=== PATIENT | female | born 1980 | race Caucasian/White ===

== ENCOUNTER → 2016-10-08 | Outpatient (CLI) | payer BC ==
[~2016-10-08] MED LIST: CIPR-225 PO; CLON0.2T12 PO; DCS100C PO; GABA800T PO; HYDR-34 PO; IBP600T1 PO; IBP800T PO; IBUP800T26 PO; ONDA4TAB8 SL; OXYC-12 PO; OXYC-197 PO; PHEN-640 PO; Simethicone PO; TAMS0.4C98 PO; TRAM50TA2 PO; ZLP5T PO
--- OUTSIDE RECORDS SUMMARY | 2016-10-08 11:50 | XMS REPORT ---
Author Author STORM RUBI [facility] Address Unknown Care Team Providers Care Gill Net Stringer Name Role Phone STORM RUBI Unavailable PROBLEMS Type Condition ICD9-CM Code MCQ81-PO Code Onset Dates Condition Status SNOMED Code Problem Insomnia, unspecified 780.52 Active 679010596 Problem Unspecified essential hypertension 401.9 Active 76718761 Problem Depressive disorder, not elsewhere classified 311 Active 09037975 Assessment Dental examination Z01.20 Mar, Active 378072464 ALLERGIES Substance Reaction Event Type Date Status Sulfa (sulfonamide Antibiotics) Unknown Non Drug Allergy Mar, Active Tylenol-codeine #3 Unknown Non Drug Allergy Mar, Active SOCIAL HISTORY No smoking Hx information available PLAN OF CARE VITAL SIGNS Blood pressure systolic 157 mmHg 2016-04-10 Blood pressure diastolic 117-wrist, 170 mmHg 2016-04-10 MEDICATIONS Medication Instructions Dosage Frequency Start Date End Date Duration Status [place] 5-325 MG Orally every 6 hrs 1 tablet as needed 6h Mar, Mar, 4 days Active Amoxicillin 500 MG Orally 4 times a day 1 capsule 6h Mar, Mar, 7 days Active Ambien 10 mg take 1 tablet (10 mg) by oral route once daily at bedtime November, Active clonidine 0.1 mg take 1 tablet by Oral route 1 time per day qHS November Active Ibuprofen Active Enalapril Maleate Active Neurontin Active RESULTS No Results PROCEDURES Procedure Date Ordered Related Diagnosis Body Site LTD ORAL EVALUATION - PROBLEM FOCUS Apr 10, 2016 INTRAORL-PERIAPICAL 1 FILM [id number] Apr 10, 2016 IMMUNIZATIONS No Known Immunizations
--- NOTE | 2016-10-08 16:27 | Diagnostic Imaging Report ---
PROCEDURE: CT urinary tract, rule out kidney stone. TECHNIQUE: Multiple contiguous axial images were obtained through the abdomen and pelvis without the use of intravenous contrast. INDICATION: Right flank pain. History of kidney stones. FINDINGS: There is mild scarring and atelectasis seen in the left lung base posteriorly. The liver, the spleen, the pancreas, and the adrenal glands appear unremarkable. Cholecystectomy clips are seen. There is a 1.5 cm fluid-attenuation lesion in the upper pole of the right kidney, similar to 12/22/2015 exam compatible with a cyst. There is resolution of the previously seen hydronephrosis on the previous study. There are multiple calcifications in the pelvis, mostly on the right side, compatible with phleboliths. There are no obstructive urinary tract stones. There is a tiny 2 mm nonobstructive stone in the mid left kidney. The abdominal aorta is normal in caliber. No para-aortic significantly enlarged lymph nodes or mass. The appendix appears normal. There is no bowel obstruction. There is no free fluid or fluid collection in the abdomen or pelvis seen. There is a tiny fat-containing umbilical hernia. There are bilateral minimally prominent adnexal lesions seen. There is suggestion of prior hysterectomy. The osseous structures demonstrate no definite abnormality. IMPRESSION: A 2 mm nonobstructive left kidney stone seen. There is no hydronephrosis in either kidney. No other urinary tract stones. Dictated by: Dictated on workstation # [id number]
== END ==
LOC: RAD 11:47
PROVIDERS: ATTEND Family Medicine
DX: N20.0 Calculus of kidney (principal); Z87.442 Personal history of urinary calculi
CPT/HCPCS: 74176

== ENCOUNTER 2017-07-21 22:16 | Emergency (ER) | payer BC ==
[~2017-07-21] VITALS: Ht 165.1 cm; Wt 86.2 kg
[2017-07-21] MEDS ORDERED: ENAL20TA (22:32)
[2017-07-21] MEDS ORDERED: KETOROLAC 30 MG/ML VIAL IVP STA (22:41)
[2017-07-21] MEDS ORDERED: NS IV 1000 ML 1,000 ML IV STA (22:41)
[2017-07-21] MEDS ORDERED: fentaNYL INJECTION 100 MCG/2 ML AMP IVP STA (22:41)
[2017-07-21] MEDS ORDERED: ONDANSETRON 4 MG/2 ML (SDV) Z0FRAN IVP ONE (22:45)
--- NOTE | 2017-07-21 22:48 | ED GU-Female ---
General Chief Complaint: Back Problems Stated Complaint: BACK AND ABD PAIN Nursing Triage Note: lower back pain x3 days, right flank pain x3hrs Nursing Sepsis Screen: No Definite Risk Source: patient Exam Limitations: no limitations History of Present Illness Time seen by provider: 22:35 Initial Comments Here with report of lower abdominal pain and then right flank pain that started 2-3 days ago and has worsened to now include the right flank. Has history of kidney stones and urinary tract infection as well as pyelonephritis. Last kidney stone was 1.2 cm and was plastic via ultrasound last year. She is also on the right. States that it feels very similar to that and that is what has her concerned the most. Reports pain is 6 out of 10 and is associated with nausea but no vomiting. Denies dysuria or diarrhea. She has had hysterectomy. Still has her appendix. Timing/Duration: getting worse Severity/Quality: moderate, aching Location: suprapubic Radiation: right flank Activities at Onset: none Associated Symptoms: abdominal pain, No dysuria, No fever/chills, lower back pain, nausea/vomiting, No urinary frequency Allergies and Home Medications Allergies Coded Allergies: Sulfa (Sulfonamide Antibiotics) (Unverified Allergy, Severe, VOMITING, ) Uncoded Allergies: TB SERUM (Allergy, Unknown, REDNESS, 08/12/14) Home Medications Enalapril Maleate 20 Mg Tablet, (Reported) Gabapentin 800 Mg Tablet, 800 MG PO TID, (Reported) Zolpidem Tartrate 5 Mg Tablet, 1-2 EACH PO HS PRN PRN for INSOMNIA, (Reported) PRN INSOMNIA Constitutional: see HPI, No chills, No fever EENTM: no symptoms reported Respiratory: no symptoms reported Cardiovascular: no symptoms reported Gastrointestinal: see HPI, No diarrhea, nausea Genitourinary: denies dysuria, flank pain, pain : No Musculoskeletal: see HPI Skin: no symptoms reported All Other Systemes Reviewed Negative Unless Noted: Yes Past Dkhhqks-Frzbej-Glgyzd Hx Patient Social History Alcohol Use: Denies Use Recreational Drug Use: No Smoking Status: Current Everyday Smoker Type Used: Cigarettes 2nd Hand Smoke Exposure: Yes Recent Foreign Travel: No Contact w/Someone Who Travel: No Recent Infectious Disease Expo: No Recent Hopitalizations: No Immunizations Up To Date Tetanus Booster (TDap): Unknown Seasonal Allergies Seasonal Allergies: No Surgeries History of Surgeries: Yes (D&C X4, ovarian cysts, lithotrypsy) Surgeries: Gallbladder, Hysterectomy Respiratory History of Respiratory Disorde: No Cardiovascular History of Cardiac Disorders: Yes (CARDIOMATHY WITH 2ND , LAST ECHO 55 %, SEE DR HUBBARD) Cardiac Disorders: Cardiomyopathy, Hypertension Neurological History of Neurological Disord: Yes Neurological Disorders: Stroke Reproductive System : No Hx Reproductive Disorders: Yes (CPP, ) Female Reproductive Disorders: Endometriosis, Ovarian 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 Genitourinary History of Genitourinary Disor: Yes Genitourinary Disorders: Kidney Stones Gastrointestinal History of Gastrointestinal Di: No Musculoskeletal History of Musculoskeletal Dis: No Endocrine History of Endocrine Disorders: No HEENT History of HEENT Disorders: No Cancer History of Cancer: No Psychosocial History of Psychiatric Problem: No Integumentary History of Skin or Integumenta: No Blood Transfusions History of Blood Disorders: No Reviewed Nursing Assessment Reviewed/Agree w Nursing PMH: Yes Family Medical History Family Medial History: Cardiovascular disease 19 FATHER 19 MOTHER Diabetes mellitus 19 FATHER Hypercholesterolemia 19 FATHER Hypertension 19 FATHER G8 BROTHER Kidney disease 19 FATHER Myocardial infarction 19 FATHER Thyroid disease 19 MOTHER Physical Exam Vital Signs Vital Sign - Last 12Hours 07/21/17 22:25 Temp 98.6 Pulse 119 Resp 20 B/P (MAP) 167/101 (123) Pulse Ox 100 O2 Delivery Room Air Capillary Refill : Less Than 3 Seconds General Appearance: WD/WN, no apparent distress Neck: full range of motion, supple Cardiovascular: regular rate, rhythm, no murmur Respiratory: lungs clear, normal breath sounds Gastrointestinal: soft, No guarding, No rebound, tenderness (mild suprapubic) Back: no vertebral tenderness, CVA tenderness (R), No CVA tenderness (L) Extremities: non-tender, normal inspection Neurologic/Psychiatric: no motor/sensory deficits, alert, oriented x 3 Skin: normal color, warm/dry Progress/Results/Core Measures Suspected Sepsis Recent Fever Within 48 Hours: No Infection Criteria Present: None New/Unexplained Altered Menta: No Sepsis Screen: No Definite Risk Sepsis Diagnosis: SIRS Temperature:98.6 Pulse: 119 Respiratory Rate: 20 Laboratory Tests 07/21/17 22:50: White Blood Count 7.9 Blood Pressure 167 /101 Mean: 123 Laboratory Tests 07/21/17 22:50: Creatinine 1.11, Platelet Count 295, Total Bilirubin 0.2 Results/Orders Lab Results Laboratory Tests Test 07/21/17 22:30 07/21/17 22:50 Range/Units Urine Color YELLOW Urine Clarity SLIGHTLY CLOUDY Urine pH 6 5-9 Urine Specific [place] 1.025 H 1.016-1.022 Urine Protein NEGATIVE NEGATIVE Urine Glucose (UA) NEGATIVE NEGATIVE Urine Ketones NEGATIVE NEGATIVE Urine Nitrite NEGATIVE NEGATIVE Urine Bilirubin NEGATIVE NEGATIVE Urine Urobilinogen NORMAL NORMAL MG/DL Urine Leukocyte Esterase 1+ H NEGATIVE Urine RBC (Auto) NEGATIVE NEGATIVE Urine RBC NONE /HPF Urine WBC 0-2 /HPF Urine Squamous Epithelial Cells 25-50 H /HPF Urine Crystals PRESENT H /LPF Urine Amorphous Sediment MOD LUZMA URATES H /LPF Urine Bacteria NONE /HPF Urine Casts NONE /LPF Urine Mucus SMALL H /LPF Urine Culture Indicated NO White Blood Count 7.9 4.3-11.0 10^3/uL Red Blood Count 4.83 4.35-5.85 10^6/uL Hemoglobin 15.2 11.5-16.0 G/DL Hematocrit 44 35-52 % Mean Corpuscular Volume 91 80-99 FL Mean Corpuscular Hemoglobin 32 25-34 PG Mean Corpuscular Hemoglobin Concent 35 32-36 G/DL Red Cell Distribution Width 13.1 10.0-14.5 % Platelet Count 295 130-400 10^3/uL Mean Platelet Volume 9.4 7.4-10.4 FL Neutrophils (%) (Auto) 63 42-75 % Lymphocytes (%) (Auto) 28 12-44 % Monocytes (%) (Auto) 7 0-12 % Eosinophils (%) (Auto) 2 0-10 % Basophils (%) (Auto) 1 0-10 % Neutrophils # (Auto) 5.0 1.8-7.8 X 10^3 Lymphocytes # (Auto) 2.2 1.0-4.0 X 10^3 Monocytes # (Auto) 0.6 0.0-1.0 X 10^3 Eosinophils # (Auto) 0.2 0.0-0.3 10^3/uL Basophils # (Auto) 0.0 0.0-0.1 10^3/uL Sodium Level 141 135-145 MMOL/L Potassium Level 3.4 L 3.6-5.0 MMOL/L Chloride Level 106 98-107 MMOL/L Carbon Dioxide Level 24 21-32 MMOL/L Anion Gap 11 5-14 MMOL/L Blood Urea Nitrogen 13 7-18 MG/DL Creatinine 1.11 0.60-1.30 MG/DL Estimat Glomerular Filtration Rate 55 BUN/Creatinine Ratio 12 Glucose Level 112 H 70-105 MG/DL Calcium Level 10.0 8.5-10.1 MG/DL Total Bilirubin 0.2 0.1-1.0 MG/DL Aspartate Amino Transf (AST/SGOT) 10 5-34 U/L Alanine Aminotransferase (ALT/SGPT) 19 0-55 U/L Alkaline Phosphatase 69 40-136 U/L Total Protein 7.1 6.4-8.2 GM/DL Albumin 4.0 3.2-4.5 GM/DL My Orders Orders - ERIN ESTRADA MD Ua Culture If Indicated (07/21/17 22:30) Cbc With Automated Diff (07/21/17 22:41) Comprehensive Metabolic Panel (07/21/17 22:41) Ondansetron Injection (Zofran Injectio (07/21/17 22:45) Ns Iv 1000 Ml (Sodium Chloride 0.9%) (07/21/17 22:41) Saline Lock/Iv-Start (07/21/17 22:41) Fentanyl Injection (Sublimaze Injection (07/21/17 22:41) Ketorolac Injection (Toradol Injection) (07/21/17 22:41) Ct Abd/Pelvis Wo(Kidney Stone) (07/21/17 22:41) Hydrocodone/Apap 7.5/325 Tab (Lortab 7. (07/21/17 23:59) Cephalexin Capsule (Keflex Capsule) (07/21/17 23:59) Medications Given in ED Current Medications Medications Dose Ordered Sig/Alice Route Start Time Stop Time Status Last Admin Dose Admin Ondansetron HCl 4 mg ONCE ONCE IVP 07/21/17 22:45 07/21/17 22:46 DC 07/21/17 22:53 4 MG Vital Signs/I&O Vital Sign - Last 12Hours 07/21/17 07/21/17 07/21/17 22:25 22:53 22:53 Temp 98.6 98.6 98.6 Pulse 119 Resp 20 B/P (MAP) 167/101 (123) Pulse Ox 100 O2 Delivery Room Air Intake and Output 07/22/17 00:00 Intake Total 1000 ml Balance 1000 ml Capillary Refill : Less Than 3 Seconds Blood Pressure Mean: 123 Progress Note : Progress Note Seen and evaluated. IV, labs, UA, normal saline 1 L bolus. Fentanyl 50 g IV, Toradol 30 mg IV and Zofran [address] abdomen and pelvis kidney stone protocol ordered. Monitor patient. 2355: Improved after meds. CT does show small stone on the left but not on the right. No other significant findings noted. We will subjectively treat given the calculus that is noted and her bladder symptoms for possible urinary tract infection with Keflex. This was discussed with the patient and she agrees. She will get one pain pill here with prescription for pain medicine and antibiotics. Discharged home with return precautions. Patient verbalize understanding instructions and agreement with plan. Diagnostic Imaging Diagonstic Imaging: CT Plain Films/CT/US/NM/MRI: abdomen, pelvis Comments 3 mm nonobstructing calculus in the midpole left kidney. No evidence of hydronephrosis. Departure Impression Impression: Primary Impression: Suprapubic abdominal pain Additional Impression: Calculus of left kidney Disposition: HOME, SELF-CARE Condition: Improved Departure-Patient Inst. Decision time for Depature: 00:02 Referrals: NO,LOCAL PHYSICIAN (PCP) Primary Care Physician Patient Instructions: Acute Abdomen (Belly Pain), Adult (DC), Kidney Stones (DC ) Add. Discharge Instructions: All discharge instructions reviewed with patient and/or family. Voiced understanding. Take medications as directed. Drink plenty of fluids. Follow-up with your urologist next week for recheck and further evaluation. Return for worse pain, fever, vomiting, weakness, breathing problems or other concerns as needed. You may take ibuprofen and 600 mg every 8 hours as needed for pain as well. Scripts Hydrocodone/Acetaminophen (Hydrocodon -Acetaminophen 5-325) 1 Each Tablet 1-2 EACH PO Q6H Y for PAIN-MODERATE, #12 TAB 0 Refills Prov: ERIN ESTRADA MD 07/22/17 Cephalexin (Cephalexin) 500 Mg Tablet 500 MG PO BID, #14 TAB 0 Refills Prov: ERIN ESTRADA MD 07/22/17 ERIN ESTRADA MD Jul 21, 2017 22:48
[2017-07-21 23:03] LABS: BILIRUBIN,URINE NEGATIVE (NEGATIVE); KETONES,URINE NEGATIVE (NEGATIVE); LEUKOCYTE ESTERASE ,URINE 1+ (NEGATIVE); NITRITE,URINE NEGATIVE (NEGATIVE); PH,URINE 6 (5-9); PROTEIN,URINE NEGATIVE (NEGATIVE); UROBILINOGEN,URINE NORMAL (NORMAL)
[2017-07-21 23:04] LABS: BASOPHILS % (AUTO) 1 % (0-10); EOSINOPHILS # (AUTO) 0.2 10^3/uL (0.0-0.3); EOSINOPHILS % (AUTO) 2 % (0-10); LYMPHOCYTES # (AUTO) 2.2 X 10^3 (1.0-4.0); LYMPHOCYTES % (AUTO) 28 % (12-44); MEAN CORPUSCULAR HEMOGLOBIN 32 PG (25-34); MEAN CORPUSCULAR HGB CONC 35 G/DL (32-36); MEAN CORPUSCULAR VOLUME 91 FL (80-99); MEAN PLATELET VOLUME 9.4 FL (7.4-10.4); MONOCYTES # (AUTO) 0.6 X 10^3 (0.0-1.0); MONOCYTES % (AUTO) 7 % (0-12); NEUTROPHILS % (AUTO) 63 % (42-75); PLATELET COUNT 295 10^3/uL (130-400); RED BLOOD COUNT 4.83 10^6/uL (4.35-5.85); RED CELL DISTRIBUTION WIDTH 13.1 % (10.0-14.5); WHITE BLOOD COUNT 7.9 10^3/uL (4.3-11.0)
[2017-07-21 23:11] LABS: SQUAMOUS EPITHELIAL CELL,UR 25-50 /HPF; WBC,URINE 0-2 /HPF
[2017-07-21 23:30] LABS: BILIRUBIN,TOTAL 0.2 MG/DL (0.1-1.0); CREATININE SERUM 1.11 MG/DL (0.60-1.30); POTASSIUM 3.4 MMOL/L (3.6-5.0); TOTAL PROTEIN 7.1 GM/DL (6.4-8.2)
[2017-07-21] MEDS ORDERED: CEPHALEXIN 250 MG (KEFLEX) CAP PO STA (23:59)
[2017-07-21] MEDS ORDERED: HYDROcodone/APAP 7.5 MG/325 MG (LORTAB, LORCET PLUS) TABLET PO STA (23:59)
[2017-07-22] MEDS ORDERED: CEPH500T PO (00:05)
[2017-07-22] MEDS ORDERED: ACHD5005 PO (00:05)
[2017-07-22 00:12] VITALS: BP 148/84
--- NOTE | 2017-07-22 07:10 | Diagnostic Imaging Report ---
PROCEDURE: CT urinary tract, rule out kidney stone. TECHNIQUE: Multiple contiguous axial images were obtained through the abdomen and pelvis without the use of intravenous contrast. INDICATION: Low back pain. COMPARISON: 10/08/2016 FINDINGS: Evaluation of the abdominal viscera is mildly limited without contrast. Lower chest: The lung bases are clear. No pericardial or pleural effusion. Peritoneum: No free intraperitoneal air or fluid. Liver and biliary system: Unenhanced liver is normal. Cholecystectomy without biliary duct dilatation. Spleen and Pancreas: Spleen is normal. Unenhanced pancreas is grossly normal. Adrenals: Normal. tract: Punctate nonobstructing 2 mm calculus in the mid left kidney is unchanged and adjacent to an area of cortical scar. No new renal or ureteral calculi. Urinary bladder is partially decompressed, which limits evaluation. Uterus is surgically absent. No adnexal mass. GI tract: Stomach is decompressed. No bowel obstruction. No pericolonic inflammatory changes. Normal appendix. Vasculature and Lymph nodes: Normal caliber aorta. No abdominal or pelvic lymphadenopathy. Musculoskeletal: No concerning osseous lesion. IMPRESSION: 1. Stable 2-3 mm nonobstructing stone in the mid left kidney when compared to 10/08/2016 exam. No new renal or ureteral stones. 2. No obstructive uropathy or acute inflammatory process in the abdomen and pelvis. Dictated by: Dictated on workstation # [id number]
== END 2017-07-22 00:10 | disposition home or self-care (01) ==
LOC: EDUNIT# 22:16 → ER 22:17
DX: N20.0 Calculus of kidney (principal); I10 Essential (primary) hypertension; F17.210 Nicotine dependence, cigarettes, uncomplicated; Z90.710 Acquired absence of both cervix and uterus; Z86.73 Personal history of transient ischemic attack (TIA), and cerebral infarction without residual deficits; Z82.49 Family history of ischemic heart disease and other diseases of the circulatory system
CPT/HCPCS: 36415; 74176; 80053; 81000; 85025

== ENCOUNTER 2017-07-28 12:36 | Emergency (ER) | payer BC ==
[~2017-07-28] VITALS: Ht 162.6 cm; Wt 85.3 kg
[~2017-07-28 12:36] MED LIST changes: +ACHD5005 PO; +CEPH500T PO; +ENAL20TA
--- OUTSIDE RECORDS SUMMARY | 2017-07-28 12:40 | XMS REPORT ---
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 Name Role Phone STORM RUBI Unavailable PROBLEMS Type Condition ICD9-CM Code [id number] Code Onset Dates Condition Status SNOMED Code Problem Insomnia, unspecified 780.52 Active 688864859 Problem Unspecified essential hypertension 401.9 Active 32866363 Problem Depressive disorder, not elsewhere classified 311 Active 48743174 Assessment Dental examination Z01.20 Mar, Active 709959093 ALLERGIES Substance Reaction Event Type Date Status Sulfa (sulfonamide Antibiotics) Unknown Non Drug Allergy Mar, Active Tylenol-codeine #3 Unknown Non Drug Allergy Mar, Active SOCIAL HISTORY No smoking Hx information available PLAN OF CARE VITAL SIGNS Blood pressure systolic 157 mmHg 2016-04-10 Blood pressure diastolic 117-wrist, 170 mmHg 2016-04-10 MEDICATIONS Medication Instructions Dosage Frequency Start Date End Date Duration Status [place] 5-325 MG Orally every 6 hrs 1 [...] FOCUS Apr 10, 2016 INTRAORL-PERIAPICAL 1 FILM [id number] Apr 10, 2016 IMMUNIZATIONS No Known Immunizations
--- OUTSIDE RECORDS SUMMARY | 2017-07-28 12:41 | XMS REPORT | Continuity of Care Document ---
Author Author [facility] Address Unknown Phone Unavailable Allergies Active Description Code Type Severity Reaction Onset Reported/Identified Relationship to Patient Clinical Status Yes Sulfa (Sulfonamide Antibiotics) Drug Allergy N/A N/A 12/07/2013 Yes Tylenol-Codeine #3 Drug Allergy N/A N/A 12/07/2013 Yes Sulfa (Sulfonamide Antibiotics) [id number] Drug Allergy Severe VOMITING Yes TB SERUM TB SERUM Unknown REDNESS 08/12/2014 Medications There is no data. Problems Date Dx Coded Attending Type Code Diagnosis Diagnosed By 12/07/2013 MASON MTZ APRN 311 DEPRESSIVE DISORDER NOT ELSEWHERE CLASSIFIED 12/07/2013 MASON MTZ APRN 401.9 UNSPECIFIED ESSENTIAL HYPERTENSION 12/07/2013 MASON MTZ APRN 780.52 INSOMNIA UNSPECIFIED 08/12/2014 MAGGIE BARNETT APRN Ot 218.9 UTERINE LEIOMYOMA NOS 08/12/2014 MAGGIE ABRNETT APRN Ot 620.2 OVARIAN CYST NEC/NOS 08/12/2014 MAGGIE BARNETT APRN Ot 789.09 ABDOMINAL PAIN, OTHER SPECIFIED SITE 08/24/2014 KEITH HARRIS DO Ot 617.9 08/24/2014 KEITH HARRIS DO Ot 625.9 08/24/2014 KEITH HARRIS DO Ot 626.8 08/24/2014 KEITH HARRIS DO Ot V72.63 08/24/2014 KEITH HARRIS DO Ot V72.81 08/24/2014 KEITH HARRIS DO Ot V74.8 08/24/2014 KEITH HARRIS DO Ot 617.3 PELV PERIT ENDOMETRIOSIS 08/24/2014 KEITH HARRIS DO Ot 625.9 FEM GENITAL SYMPTOMS NOS 08/24/2014 KEITH HARRIS DO Ot 626.2 EXCESSIVE MENSTRUATION 12/22/2015 KEITH HARRIS DO Ot 620.2 OVARIAN CYST NEC/NOS 12/22/2015 FENECH DO, KEITH S Ot 621.2 HYPERTROPHY OF UTERUS 12/22/2015 KEITH HARRIS DO S Ot 625.9 FEM GENITAL SYMPTOMS NOS 12/22/2015 KEITH HARRIS DO S Ot 626.2 EXCESSIVE MENSTRUATION 12/22/2015 KEITH HARRIS DO S Ot 617.9 ENDOMETRIOSIS NOS 12/22/2015 KEITH HARRIS DO S Ot 625.9 FEM GENITAL SYMPTOMS NOS 12/22/2015 KEITH HARRIS DO S Ot 626.8 MENSTRUAL DISORDER NEC 12/22/2015 KEITH AHRRIS DO S Ot V72.63 PRE-PROCEDURAL LABORATORY EXAMINATION 12/22/2015 KEITH HARRIS DO S Ot V72.81 LIBD-OUR-NILIJZZDQ CARDIOVASCULAR 12/22/2015 KEITH HARRIS DO S Ot V74.8 SCREEN-BACTERIAL DIS NEC 12/22/2015 ADRYNA DE LA ROSA, ИРИНА Darden Ot N13.6 PYONEPHROSIS 12/22/2015 KEITH HARRIS DO Ot 620.2 OVARIAN CYST NEC/NOS 12/22/2015 KEITH HARRIS DO S Ot 621.2 HYPERTROPHY OF UTERUS 12/22/2015 KEITH HARRIS DO S Ot 625.9 FEM GENITAL SYMPTOMS NOS 12/22/2015 KEITH HARRIS DO S Ot 626.2 EXCESSIVE MENSTRUATION 12/22/2015 KEITH HARRIS DO S Ot 617.9 ENDOMETRIOSIS NOS 12/22/2015 KEITH HARRIS DO S Ot 625.9 FEM GENITAL SYMPTOMS NOS 12/22/2015 KEITH HARRIS DO S Ot 626.8 MENSTRUAL DISORDER NEC 12/22/2015 KEITH HARRIS DO Ot V72.63 PRE-PROCEDURAL LABORATORY EXAMINATION 12/22/2015 KEITH HARRIS DO Ot V72.81 [id number] CARDIOVASCULAR 12/22/2015 KEITH HARRIS DO Ot V74.8 SCREEN-BACTERIAL DIS NEC 12/23/2015 ADRYAN DE LA ROSA, ИРИНА Darden Ot N13.6 PYONEPHROSIS 04/22/2016 SHANDA SIM MD Ot M16.12 UNILATERAL PRIMARY OSTEOARTHRITIS, LEFT 04/22/2016 SHANDA SIM MD Ot S79.912A UNSPECIFIED INJURY OF LEFT HIP, INITIAL 04/22/2016 SHANDA SIM MD Ot W19.XXXA UNSPECIFIED FALL, INITIAL ENCOUNTER 04/29/2016 SHANDA SIM MD, Ot M16.12 UNILATERAL PRIMARY OSTEOARTHRITIS, LEFT 04/29/2016 SHANDA SIM MD Ot S79.912A UNSPECIFIED INJURY OF LEFT HIP, INITIAL 04/29/2016 SHANDA SIM MD Ot W19.XXXA UNSPECIFIED FALL, INITIAL ENCOUNTER 10/08/2016 SHANDA SIM MD Ot M16.12 UNILATERAL PRIMARY OSTEOARTHRITIS, LEFT 10/08/2016 SHANDA SIM MD Ot S79.912A UNSPECIFIED INJURY OF LEFT HIP, INITIAL 10/08/2016 SHANDA SIM MD Ot W19.XXXA UNSPECIFIED FALL, INITIAL ENCOUNTER 10/09/2016 SHANDA SIM MD Ot N20.0 CALCULUS OF KIDNEY 10/09/2016 SHANDA SIM MD Ot Z87.442 PERSONAL HISTORY OF URINARY CALCULI 10/22/2016 SHANDA SIM MD Ot N20.0 CALCULUS OF KIDNEY 10/22/2016 SHANDA SIM MD Ot Z87.442 PERSONAL HISTORY OF URINARY CALCULI Procedures Code [place] [address] [employer] 12/09/2013 Results Test Result Range Complete urinalysis with reflex to culture - 07/21/17 22:30 Urine color determination YELLOW NRG Urine clarity determination SLIGHTLY CLOUDY NRG Urine pH measurement by test strip 6 5-9 Specific gravity of urine by test strip 1.025 1.016- 1.022 Urine protein assay by test strip, semi-quantitative NEGATIVE NEGATIVE Urine glucose detection by automated test strip NEGATIVE NEGATIVE Erythrocytes detection in urine sediment by light microscopy NEGATIVE NEGATIVE Urine ketones detection by automated test strip NEGATIVE NEGATIVE Urine nitrite detection by test strip NEGATIVE NEGATIVE Urine total bilirubin detection by test strip NEGATIVE NEGATIVE Urine urobilinogen measurement by automated test strip (mass/volume) NORMAL NORMAL Urine leukocyte esterase detection by dipstick 1+ NEGATIVE Automated urine sediment erythrocyte count by microscopy (number/high power field) NONE NRG Automated urine sediment leukocyte count by microscopy (number/high power field ) [HPF] NRG Bacteria detection in urine sediment by light microscopy NONE NRG Squamous epithelial cells detection in urine sediment by light microscopy 25-50 NRG Crystals detection in urine sediment by light microscopy PRESENT NRG Casts detection in urine sediment by light microscopy NONE NRG Mucus detection in urine sediment by light microscopy SMALL NRG Complete urinalysis with reflex to culture NO NRG Amorphous sediment detection in urine sediment by light microscopy MOD LUZMA URATES NRG Complete blood count (CBC) with automated white blood cell (WBC) differential - 07/21/17 22:50 Blood leukocytes automated count (number/volume) 7.9 10*3/uL 4.3-11.0 Blood erythrocytes automated count (number/volume) 4.83 10*6/uL 4.35-5.85 Venous blood hemoglobin measurement (mass/volume) 15.2 g/dL 11.5-16.0 Blood hematocrit (volume fraction) 44 % 35-52 Automated erythrocyte mean corpuscular volume 91 [foz_us] 80-99 Automated erythrocyte mean corpuscular hemoglobin (mass per erythrocyte) 32 pg 25-34 Automated erythrocyte mean corpuscular hemoglobin concentration measurement ( mass/volume) 35 g/dL 32-36 Automated erythrocyte distribution width ratio 13.1 % 10.0-14.5 Automated blood platelet count (count/volume) 295 10*3/uL 130-400 Automated blood platelet mean volume measurement 9.4 [foz_us] 7.4-10.4 Automated blood neutrophils/100 leukocytes 63 % 42-75 Automated blood lymphocytes/100 leukocytes 28 % 12-44 Blood monocytes/100 leukocytes 7 % 0-12 Automated blood eosinophils/100 leukocytes 2 % 0-10 Automated blood basophils/100 leukocytes 1 % 0-10 Blood neutrophils automated count (number/volume) 5.0 10*3 1.8-7.8 Blood lymphocytes automated count (number/volume) 2.2 10*3 1.0-4.0 Blood monocytes automated count (number/volume) 0.6 10*3 0.0-1.0 Automated eosinophil count 0.2 10*3/uL 0.0-0.3 Automated blood basophil count (count/volume) 0.0 10*3/uL 0.0-0.1 Comprehensive metabolic panel - 07/21/17 22:50 Serum or plasma sodium measurement (moles/volume) 141 mmol/L 135-145 Serum or plasma potassium measurement (moles/volume) 3.4 mmol/L 3.6-5.0 Serum or plasma chloride measurement (moles/volume) 106 mmol/L 98-107 Carbon dioxide 24 mmol/L 21-32 Serum or plasma anion gap determination (moles/volume) 11 mmol/L 5-14 Serum or plasma urea nitrogen measurement (mass/volume) 13 mg/dL 7-18 Serum or plasma creatinine measurement (mass/volume) 1.11 mg/dL 0.60-1.30 Serum or plasma urea nitrogen/creatinine mass ratio 12 NRG Serum or plasma creatinine measurement with calculation of estimated glomerular filtration rate 55 NRG Serum or plasma glucose measurement (mass/volume) 112 mg/dL 70-105 Serum or plasma calcium measurement (mass/volume) 10.0 mg/dL 8.5-10.1 Serum or plasma total bilirubin measurement (mass/volume) 0.2 mg/dL 0.1-1.0 Serum or plasma alkaline phosphatase measurement (enzymatic activity/volume) 69 U/L 40-136 Serum or plasma aspartate aminotransferase measurement (enzymatic activity/ volume) 10 U/L 5-34 Serum or plasma alanine aminotransferase measurement (enzymatic activity/volume ) 19 U/L 0-55 Serum or plasma protein measurement (mass/volume) 7.1 g/dL 6.4-8.2 Serum or plasma albumin measurement (mass/volume) 4.0 g/dL 3.2-4.5 Encounters ACCT No. Visit Date/Time Discharge Status Pt. Type Provider Facility Loc./Unit Complaint [id number] 12/07/2013 14:08:00 12/07/2013 23:59:59 CLS Outpatient MASON MTZ APRN R [id number] 10/08/2016 11:47:00 10/08/2016 23:59:59 CLS Outpatient SHANDA SIM MD [facility] RAD RIGHT FLANK PAIN,HX OF KIDNEY STONES [id number] 04/18/2016 11:29:00 04/18/2016 23:59:59 CLS Outpatient SHANDA SIM MD [facility] RAD L HIP PAIN [id number] 12/22/2015 06:40:00 12/22/2015 10:50:00 DIS Emergency ADRYAN DE LA ROSA, ИРИНА Darden [facility] ER [id number] 08/24/2014 06:00:00 08/24/2014 18:50:00 DIS Outpatient KEITH HARRIS DO [facility] [id number] 08/21/2014 12:47:00 08/21/2014 23:59:59 CLS Outpatient KEITH HARRIS DO [facility] PREOP [id number] 08/16/2014 11:26:00 08/16/2014 23:59:59 CLS Outpatient KEITH HARRIS DO [facility] RAD [id number] 08/12/2014 12:14:00 08/12/2014 14:18:00 DIS Emergency MAGGIE BARNETT APRN [facility] ER [id number] 07/21/2017 23:11:00 Document Registration
--- OUTSIDE RECORDS SUMMARY | 2017-07-28 12:41 | XMS REPORT ---
Author [facility] [employer] Address Unknown Phone Unavailable Care Team Providers Care Senior Etl Developer Name Role Phone STORM RUBI CP Unavailable Allergies, Adverse Reactions, Alerts Substance Reaction Event Type Sulfa (sulfonamide Antibiotics) Info Not Available Non Drug Allergy Tylenol-codeine #3 Info Not Available Non Drug Allergy Problems Problem Type Condition Code Onset Dates Condition Status Problem Unspecified essential hypertension 401.9 Active Problem Depressive disorder, not elsewhere classified 311 Active Problem Insomnia, unspecified 780.52 Active Assessment Dental caries K02.9 Active Medications Medication Code System Code Instructions Start Date End Date Status Dosage Enalapril Maleate [facility] [address]-11 not defined clonidine NDC 0 0.1 mg December 07, 2013 take 1 tablet by Oral route 1 time per day qHS Ibuprofen NDC 0 not defined Neurontin [facility] [id number] not defined Ambien [facility] [id number] 10 mg December 07, 2013 take 1 tablet (10 mg) by oral route once daily at bedtime Procedures Procedure Coding System Code Date EXTRAC ERUPTED TOOTH/EXPOSED ROOT CPT-4 D7140 May 14, 2016 Vital Signs Date/Time: May 14, 2016 Blood Pressure Diastolic 98 mmHg Blood Pressure Systolic 142 mmHg Height 64 in Results No Known Results Summary Purpose eClinicalWorks Submission
[2017-07-28] MEDS ORDERED: NS IV 1000 ML 1,000 ML IV ONE (13:35)
[2017-07-28] MEDS ORDERED: KETOROLAC 30 MG/ML VIAL IVP STA (13:45)
--- NOTE | 2017-07-28 14:10 | Diagnostic Imaging Report ---
INDICATION: Fever, vomiting, nausea and diarrhea. Right-sided abdominal pain for a week. Supine views of the abdomen shows the bowel gas pattern to be within normal limits. No mass or calculus is evident. There are changes of prior cholecystectomy. There is no bony abnormality. IMPRESSION: No acute abnormality is seen. Dictated by: Dictated on workstation # [id number]
--- NOTE | 2017-07-28 14:20 | ED GU-Female ---
General Chief Complaint: Abdominal/GI Problems Stated Complaint: RIGHT SIDE PAIN Nursing Triage Note: AMB TO ROOM HAS BEEN SEEN HERE AND URGENT CARE FOR LAST WEEK . WAS SEEN HERE PUT ON ANTIBIOTIC. AND PAIN MEDS. Nursing Sepsis Screen: No Definite Risk History of Present Illness Time seen by provider: 13:25 Initial Comments 37-year-old female presents for right lower abdominal pain. She was seen and treated here on 07/21/17 for urolithiasis, with Keflex and hydrocodone. She was evaluated on 07/25/17 at [facility] urgent care for continued symptoms. Patient reports history of over 5 kidney stones in the past. Her CT for kidney stone was noted on the left kidney measuring approximately 2-3 mm. At present time the patient reports the pain to be in the right lower abdomen, she took ibuprofen yesterday which improved her symptoms. She is also had intermittent diarrhea since 07/24/17. She has finished the Cipro that she was prescribed here , and she is no longer taking the hydrocodone. Timing/Duration: intermittent Severity/Quality: moderate Location: RLQ Radiation: right flank Activities at Onset: none Prior Genitourinary Problems: similar symptoms Modifying Factors: Improves With Analgesics, Improves With Resting Associated Symptoms: abdominal pain, No diaphoresis, No dysuria, fever/chills, No loss of bladder control, lower back pain, nausea/vomiting, No nocturia, No polyuria, No swelling, No syncope, No urinary frequency Allergies and Home Medications Allergies Coded Allergies: Sulfa (Sulfonamide Antibiotics) (Unverified Allergy, Severe, VOMITING, ) Uncoded Allergies: TB SERUM (Allergy, Unknown, REDNESS, 08/12/14) Home Medications Cephalexin 500 Mg Tablet, 500 MG PO BID, #14 Ref 0 Prescribed by: ERIN ESTRADA on 07/22/17 0005 Enalapril Maleate 20 Mg Tablet, (Reported) Gabapentin 800 Mg Tablet, 800 MG PO TID, (Reported) Hydrocodone Bit/Acetaminophen 1 Each Tablet, 1-2 EACH PO Q6H PRN for PAIN- MODERATE, #12 Ref 0 Prescribed by: ERIN ESTRADA on 07/22/17 0005 Ibuprofen 800 Mg Tablet, 800 MG PO Q8H PRN for PAIN, #30 Ref 0 Prescribed by: MARÍA CALIX on 07/28/17 1546 Zolpidem Tartrate 5 Mg Tablet, 1-2 EACH PO HS PRN PRN for INSOMNIA, (Reported) PRN INSOMNIA Constitutional: no symptoms reported, see HPI Gastrointestinal: see HPI, abdominal pain (RLQ), diarrhea, loss of appetite, nausea Genitourinary: see HPI, flank pain (right) All Other Systemes Reviewed Negative Unless Noted: Yes Past Scpsjma-Pwielm-Msaxro Hx Patient Social History Alcohol Use: Denies Use Recreational Drug Use: No Smoking Status: Current Everyday Smoker Type Used: Cigarettes 2nd Hand Smoke Exposure: Yes Recent Foreign Travel: No Contact w/Someone Who Travel: No Recent Infectious Disease Expo: No Recent Hopitalizations: No Immunizations Up To Date Tetanus Booster (TDap): Unknown Seasonal Allergies Seasonal Allergies: No Surgeries History of Surgeries: Yes (D&C X4, ovarian cysts, lithotrypsy) Surgeries: Gallbladder, Hysterectomy Respiratory History of Respiratory Disorde: No Cardiovascular History of Cardiac Disorders: Yes (CARDIOMATHY WITH 2ND , LAST ECHO 55 %, SEE DR HUBBARD) Cardiac Disorders: Cardiomyopathy, Hypertension Neurological History of Neurological Disord: Yes Neurological Disorders: Stroke Reproductive System Hx Reproductive Disorders: Yes (CPP, ) Female Reproductive Disorders: Endometriosis, 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 Genitourinary History of Genitourinary Disor: Yes Genitourinary Disorders: Kidney Stones Gastrointestinal History of Gastrointestinal Di: No Musculoskeletal History of Musculoskeletal Dis: No Endocrine History of Endocrine Disorders: No HEENT History of HEENT Disorders: No Cancer History of Cancer: No Psychosocial History of Psychiatric Problem: No Integumentary History of Skin or Integumenta: No Blood Transfusions History of Blood Disorders: No Reviewed Nursing Assessment Reviewed/Agree w Nursing PMH: Yes Family Medical History Family Medial History: Cardiovascular disease 19 FATHER 19 MOTHER Diabetes mellitus 19 FATHER Hypercholesterolemia 19 FATHER Hypertension 19 FATHER G8 BROTHER Kidney disease 19 FATHER Myocardial infarction 19 FATHER Thyroid disease 19 MOTHER No Family History of: AIDS Abdominal aortic aneurysm Alcoholism Alzheimer's disease Arthritis Asthma Completed stroke Dementia Drug abuse Glaucoma Parkinson's disease Prostate cancer Psychosocial problem Respiratory disorder Seizure disorder Severe allergy Tuberculosis Physical Exam Vital Signs Vital Sign - Last 12Hours 07/28/17 07/28/17 12:52 16:02 Temp 99.0 Pulse 107 Resp 18 B/P (MAP) 143/118 (126) Pulse Ox 98 O2 Delivery Room Air Capillary Refill : Less Than 3 Seconds General Appearance: WD/WN, no apparent distress HEENT: PERRL/EOMI, normal ENT inspection, TMs normal, pharynx normal Neck: non-tender, full range of motion, supple, normal inspection Cardiovascular: normal peripheral pulses, regular rate, rhythm, no edema, no murmur Respiratory: chest non-tender, lungs clear, normal breath sounds Gastrointestinal: normal bowel sounds, soft, no organomegaly, No distended, No guarding, rebound, tenderness (right lower quadrant) Back: normal inspection, no vertebral tenderness, CVA tenderness (R) Neurologic/Psychiatric: no motor/sensory deficits, alert, normal mood/affect, oriented x 3 Skin: normal color, warm/dry Focused Exam Evaluation Lactate Level Laboratory Tests 07/28/17 14:26: Lactic Acid Level 1.02 Lactic Acid Level Laboratory Tests Test 07/28/17 14:26 Lactic Acid Level 1.02 MMOL/L (0.50-2.00) Progress/Results/Core Measures Suspected Sepsis Recent Fever Within 48 Hours: No Infection Criteria Present: None New/Unexplained Altered Menta: No Sepsis Screen: No Definite Risk Sepsis Diagnosis: SIRS Temperature:99.0 Pulse: 107 Respiratory Rate: 18 Laboratory Tests 07/28/17 14:26: White Blood Count 9.7 Blood Pressure 143 /118 Mean: 126 Laboratory Tests 07/28/17 14:26: Lactic Acid Level 1.02 Laboratory Tests 07/28/17 14:26: Creatinine 0.96, Platelet Count 287, Total Bilirubin 0.4 Results/Orders Lab Results Laboratory Tests Test 07/28/17 14:26 Range/Units White Blood Count 9.7 4.3-11.0 10^3/uL Red Blood Count 5.08 4.35-5.85 10^6/uL Hemoglobin 15.9 11.5-16.0 G/DL Hematocrit 46 35-52 % Mean Corpuscular Volume 91 80-99 FL Mean Corpuscular Hemoglobin 31 25-34 PG Mean Corpuscular Hemoglobin Concent 35 32-36 G/DL Red Cell Distribution Width 13.5 10.0-14.5 % Platelet Count 287 130-400 10^3/uL Mean Platelet Volume 9.5 7.4-10.4 FL Neutrophils (%) (Auto) 70 42-75 % Lymphocytes (%) (Auto) 20 12-44 % Monocytes (%) (Auto) 8 0-12 % Eosinophils (%) (Auto) 2 0-10 % Basophils (%) (Auto) 0 0-10 % Neutrophils # (Auto) 6.8 1.8-7.8 X 10^3 Lymphocytes # (Auto) 1.9 1.0-4.0 X 10^3 Monocytes # (Auto) 0.8 0.0-1.0 X 10^3 Eosinophils # (Auto) 0.2 0.0-0.3 10^3/uL Basophils # (Auto) 0.0 0.0-0.1 10^3/uL Urine Color YELLOW Urine Clarity CLEAR Urine pH 6 5-9 Urine Specific Higden 1.020 1.016-1.022 Urine Protein NEGATIVE NEGATIVE Urine Glucose (UA) NEGATIVE NEGATIVE Urine Ketones NEGATIVE NEGATIVE Urine Nitrite NEGATIVE NEGATIVE Urine Bilirubin NEGATIVE NEGATIVE Urine Urobilinogen NORMAL NORMAL MG/DL Urine Leukocyte Esterase 1+ H NEGATIVE Urine RBC (Auto) NEGATIVE NEGATIVE Urine RBC NONE /HPF Urine WBC 2-5 /HPF Urine Squamous Epithelial Cells 10-25 H /HPF Urine Crystals NONE /LPF Urine Bacteria TRACE /HPF Urine Casts NONE /LPF Urine Mucus SMALL H /LPF Urine Culture Indicated NO Sodium Level 140 135-145 MMOL/L Potassium Level 4.2 3.6-5.0 MMOL/L Chloride Level 104 98-107 MMOL/L Carbon Dioxide Level 27 21-32 MMOL/L Anion Gap 9 5-14 MMOL/L Blood Urea Nitrogen 11 7-18 MG/DL Creatinine 0.96 0.60-1.30 MG/DL Estimat Glomerular Filtration Rate > 60 BUN/Creatinine Ratio 11 Glucose Level 89 70-105 MG/DL Lactic Acid Level 1.02 0.50-2.00 MMOL/L Calcium Level 10.0 8.5-10.1 MG/DL Total Bilirubin 0.4 0.1-1.0 MG/DL Aspartate Amino Transf (AST/SGOT) 11 5-34 U/L Alanine Aminotransferase (ALT/SGPT) 23 0-55 U/L Alkaline Phosphatase 72 40-136 U/L C-Reactive Protein High Sensitivity 0.11 0.00-0.50 MG/DL Total Protein 7.5 6.4-8.2 GM/DL Albumin 4.1 3.2-4.5 GM/DL My Orders Orders - MARÍA CALIX Cbc With Automated Diff (07/28/17 13:35) Comprehensive Metabolic Panel (07/28/17 13:35) Hs C Reactive Protein (07/28/17 13:35) Ua Culture If Indicated (07/28/17 13:35) Blood Culture (07/28/17 13:35) Lactic Acid Analyzer (07/28/17 13:35) Saline Lock/Iv-Start (07/28/17 13:35) Ns Iv 1000 Ml (Sodium Chloride 0.9%) (07/28/17 13:35) Ketorolac Injection (Toradol Injection) (07/28/17 13:45) Abdomen/Kub 1view (07/28/17 13:45) Medications Given in ED Current Medications Medications Dose Ordered Sig/Alice Route Start Time Stop Time Status Last Admin Dose Admin Sodium Chloride 1,000 ml @ 0 mls/hr Q0M ONCE IV 07/28/17 13:35 07/28/17 13:37 DC 07/28/17 14:29 1,000 MLS/HR Vital Signs/I&O Vital Sign - Last 12Hours 07/28/17 07/28/17 12:52 16:02 Temp 99.0 Pulse 107 81 Resp 18 18 B/P (MAP) 143/118 (126) Pulse Ox 98 O2 Delivery Room Air Capillary Refill : Less Than 3 Seconds Blood Pressure Mean: 126 Progress Note : Time: 13:25 Progress Note Initial evaluation completed, recommended labs, IV normal saline 1 L, Toradol 30 mg IV for pain. 1415 reviewed labs and x-ray results with patient, all essentially normal. Patient reports that her symptoms are improved. 1430 discharge planning and return precautions reviewed with the patient. All questions answered. She will schedule with urology for follow-up. Diagnostic Imaging Diagonstic Imaging: Xray Plain Films/CT/US/NM/MRI: abdomen Comments NAME: VENKATA CRAWFORD [facility] REC#: [id number] PT STATUS: REG ER : 1980 PHYSICIAN: MARÍA CALIX ADMIT DATE: 07/28/17/ER Draft Date of Exam:07/28/17 ABDOMEN/KUB 1VIEW INDICATION: Fever, vomiting, nausea and diarrhea. Right-sided abdominal pain for a week. Supine views of the abdomen shows the bowel gas pattern to be within normal limits. No mass or calculus is evident. There are changes of prior cholecystectomy. There is no bony abnormality. IMPRESSION: No acute abnormality is seen. Dictated on workstation # [id number] Dict: 07/28/17 1408 Trans: 07/28/17 1410 [facility] [id number] Interpreted by: TESSY CHRISTIANSEN MD Electronically signed by: Reviewed: Reviewed by Me Departure Impression Impression: Primary Impression: Pain in the abdomen Qualified Codes: R10.31 - Right lower quadrant pain Additional Impression: Renal calculi Disposition: HOME, SELF-CARE Condition: Improved Departure-Patient Inst. Referrals: NO,LOCAL PHYSICIAN (PCP/Family) Primary Care Physician Patient Instructions: Acute Abdomen (Belly Pain), Adult (DC), Renal Colic (DC) Add. Discharge Instructions: Increase water intake, and empty bladder frequently. Drink 16 ounces of water every 2 hours while awake. Use ibuprofen 800 mg every 8 hours with food for pain. May use Tylenol 650 mg every 6 hour for additional pain relief. Schedule with urology for follow-up. Return to emergency department for increased pain, fever greater than 101 not relieved by ibuprofen or Tylenol, or new problems. All discharge instructions reviewed with patient and/or family. Voiced understanding. Scripts Ibuprofen (Ibuprofen) 800 Mg Tablet 800 MG PO Q8H Y for PAIN, #30 TAB 0 Refills Prov: MARÍA CALIX 07/28/17 MARÍA CALIX Jul 28, 2017 14:20
[2017-07-28 14:52] LABS: BASOPHILS % (AUTO) 0 % (0-10); BILIRUBIN,URINE NEGATIVE (NEGATIVE); CLARITY,URINE CLEAR; COLOR,URINE YELLOW; EOSINOPHILS # (AUTO) 0.2 10^3/uL (0.0-0.3); EOSINOPHILS % (AUTO) 2 % (0-10); GLUCOSE, URINE (UA) NEGATIVE (NEGATIVE); HEMATOCRIT 46 % (35-52); HEMOGLOBIN 15.9 G/DL (11.5-16.0); KETONES,URINE NEGATIVE (NEGATIVE); LEUKOCYTE ESTERASE ,URINE 1+ (NEGATIVE); LYMPHOCYTES # (AUTO) 1.9 X 10^3 (1.0-4.0); LYMPHOCYTES % (AUTO) 20 % (12-44); MEAN CORPUSCULAR HEMOGLOBIN 31 PG (25-34); MEAN CORPUSCULAR HGB CONC 35 G/DL (32-36); MEAN CORPUSCULAR VOLUME 91 FL (80-99); MEAN PLATELET VOLUME 9.5 FL (7.4-10.4); MONOCYTES # (AUTO) 0.8 X 10^3 (0.0-1.0); MONOCYTES % (AUTO) 8 % (0-12); NEUTROPHILS # (AUTO) 6.8 X 10^3 (1.8-7.8); NEUTROPHILS % (AUTO) 70 % (42-75); NITRITE,URINE NEGATIVE (NEGATIVE); PH,URINE 6 (5-9); PLATELET COUNT 287 10^3/uL (130-400); PROTEIN,URINE NEGATIVE (NEGATIVE); RED BLOOD COUNT 5.08 10^6/uL (4.35-5.85); RED CELL DISTRIBUTION WIDTH 13.5 % (10.0-14.5); UROBILINOGEN,URINE NORMAL (NORMAL); WHITE BLOOD COUNT 9.7 10^3/uL (4.3-11.0)
[2017-07-28 15:10] LABS: BACTERIA,URINE TRACE /HPF
[2017-07-28 15:18] LABS: ALANINE AMINOTRANSFERASE 23 U/L (0-55); ALBUMIN 4.1 GM/DL (3.2-4.5); ALKALINE PHOSPHATASE 72 U/L (40-136); BILIRUBIN,TOTAL 0.4 MG/DL (0.1-1.0); BUN/CREATININE RATIO 11; CARBON DIOXIDE 27 MMOL/L (21-32); CHLORIDE 104 MMOL/L (98-107); CREATININE SERUM 0.96 MG/DL (0.60-1.30); GFR ESTIMATED > 60; GLUCOSE 89 MG/DL (70-105); POTASSIUM 4.2 MMOL/L (3.6-5.0); SODIUM 140 MMOL/L (135-145); TOTAL PROTEIN 7.5 GM/DL (6.4-8.2)
[2017-07-28] MEDS ORDERED: IBUP-1780 PO (15:46)
[2017-07-28 16:02] VITALS: BP 155/100
== END 2017-07-28 16:02 | disposition home or self-care (01) ==
LOC: EDUNIT# 12:36 → ER 12:37
DX: N20.0 Calculus of kidney (principal); I10 Essential (primary) hypertension; F17.210 Nicotine dependence, cigarettes, uncomplicated; Z90.710 Acquired absence of both cervix and uterus; Z87.42 Personal history of other diseases of the female genital tract; Z86.73 Personal history of transient ischemic attack (TIA), and cerebral infarction without residual deficits
CPT/HCPCS: 36415; 74018; 80053; 81000; 83605; 85025; 86141; 87040

== ENCOUNTER → 2019-05-03 | Outpatient (CLI) | payer BC, OTHER ==
[~2019-05-03] MED LIST changes: +IBUP-1780 PO; -OXYC-197 PO; +OXYC1TAB87 PO
--- NOTE | 2019-05-03 10:32 | Diagnostic Imaging Report ---
INDICATION: Chest pain, dry cough x3 weeks.. TECHNIQUE: Two view chest 10:22 AM CORRELATION STUDY: None FINDINGS: The heart size, mediastinal configuration and pulmonary vasculature are within normal limits. The lungs are clear with no consolidating infiltrate. There is no significant pleural effusion or pneumothorax. Presumably cholecystectomy clips right upper quadrant. IMPRESSION: 1. Negative for acute abnormality of the chest. Dictated by: Dictated on workstation # [id number]
[2019-05-03 10:41] LABS: BASOPHILS % (AUTO) 1 % (0-10); EOSINOPHILS # (AUTO) 0.2 10^3/uL (0.0-0.3); EOSINOPHILS % (AUTO) 4 % (0-10); HEMATOCRIT 44 % (35-52); HEMOGLOBIN 15.5 G/DL (11.5-16.0); LYMPHOCYTES # (AUTO) 1.9 X 10^3 (1.0-4.0); LYMPHOCYTES % (AUTO) 35 % (12-44); MEAN CORPUSCULAR HEMOGLOBIN 32 PG (25-34); MEAN CORPUSCULAR HGB CONC 35 G/DL (32-36); MEAN CORPUSCULAR VOLUME 93 FL (80-99); MEAN PLATELET VOLUME 9.4 FL (7.4-10.4); MONOCYTES # (AUTO) 0.6 X 10^3 (0.0-1.0); MONOCYTES % (AUTO) 10 % (0-12); NEUTROPHILS # (AUTO) 2.8 X 10^3 (1.8-7.8); NEUTROPHILS % (AUTO) 51 % (42-75); PLATELET COUNT 306 10^3/uL (130-400); RED CELL DISTRIBUTION WIDTH 13.9 % (10.0-14.5); WHITE BLOOD COUNT 5.6 10^3/uL (4.3-11.0)
[2019-05-03 11:06] LABS: ALANINE AMINOTRANSFERASE 57 U/L (0-55); ALBUMIN 4.1 GM/DL (3.2-4.5); ALKALINE PHOSPHATASE 82 U/L (40-136); BILIRUBIN,TOTAL 0.7 MG/DL (0.1-1.0); BUN/CREATININE RATIO 6; CALCIUM 9.3 MG/DL (8.5-10.1); CARBON DIOXIDE 24 MMOL/L (21-32); CHLORIDE 105 MMOL/L (98-107); CHOLESTEROL 192 MG/DL (< 200); CREATININE SERUM 0.81 MG/DL (0.60-1.30); GFR ESTIMATED > 60; GLUCOSE 89 MG/DL (70-105); HDL CHOLESTEROL 44 MG/DL (40-60); POTASSIUM 3.4 MMOL/L (3.6-5.0); SODIUM 140 MMOL/L (135-145); TOTAL PROTEIN 7.1 GM/DL (6.4-8.2); TRIGLYCERIDES 158 MG/DL (<150); VLDL CHOLESTEROL 32 MG/DL (5-40)
[2019-05-03 11:13] LABS: CREATINE KINASE MB 0.6 NG/ML (<6.6)
== END ==
LOC: RAD 10:01
PROVIDERS: ATTEND Nurse Practitioner Family
DX: E78.2 Mixed hyperlipidemia (principal); R07.89 Other chest pain; R05 Cough; R53.83 Other fatigue; R06.00 Dyspnea, unspecified
CPT/HCPCS: 36415; 71046; 80053; 80061; 82553; 83880; 84484; 85025; 86738

== ENCOUNTER → 2021-12-02 | Outpatient (CLI) | payer BC ==
[~2021-12-02] MED LIST changes: -ENAL20TA; +ENAL20TA16; -TAMS0.4C98 PO; +TMSL.4C PO; -TRAM50TA2 PO; +TRM50T PO
[2021-12-02 16:45] LABS: HEMATOCRIT 47 % (35-52); MEAN CORPUSCULAR HEMOGLOBIN 34 pg (25-34); MEAN CORPUSCULAR HGB CONC 34 g/dL (32-36); MEAN CORPUSCULAR VOLUME 100 fL (80-99); MEAN PLATELET VOLUME 9.6 fL (9.0-12.2); PLATELET COUNT 317 10^3/uL (130-400); WHITE BLOOD COUNT 8.2 10^3/uL (4.3-11.0)
--- NOTE | 2021-12-02 16:59 | Diagnostic Imaging Report ---
PROCEDURE: CT abdomen and pelvis without contrast. TECHNIQUE: Multiple contiguous axial images were obtained through the abdomen and pelvis without the use of intravenous contrast. Auto Exposure Controls were utilized during the CT exam to meet ALARA standards for radiation dose reduction. INDICATION: Left flank pain COMPARISON: 07/21/2017 Unenhanced images of the liver, pancreas, adrenal glands and spleen are unremarkable. Gallbladder surgically absent without evidence of biliary ductal dilatation. Right kidney is unremarkable apart from possible 1 cm cyst in the posterior cortex and minimal pelvic calcification. There are, however, multiple stones present within the left renal collecting system with the largest measuring 1.1 cm in size at the ureteropelvic junction. The appendix has a normal appearance. There is no evidence of free fluid in the abdomen or pelvis. Unopacified bladder is unremarkable. IMPRESSION: Nephrolithiasis, greater on the left with approximately 1.1 cm calculus near the left ureteropelvic junction and associated mild left hydronephrosis. Clinical correlation and possible urinalysis would be of use. Dictated by: Dictated on workstation # [id number]
[2021-12-02 17:01] LABS: ALBUMIN 4.4 GM/DL (3.2-4.5)
[2021-12-02 17:04] LABS: TOTAL PROTEIN 7.8 GM/DL (6.4-8.2)
[2021-12-02 17:05] LABS: BILIRUBIN,TOTAL 0.3 MG/DL (0.1-1.0)
[2021-12-02 17:07] LABS: CREATININE SERUM 0.97 MG/DL (0.60-1.30)
== END ==
LOC: RAD 16:30
DX: N13.2 Hydronephrosis with renal and ureteral calculous obstruction (principal)
CPT/HCPCS: 36415; 74176; 80053; 85027

== ENCOUNTER → 2021-12-04 | Outpatient (CLI) | payer BC ==
[~2021-12-04] MED LIST changes: +BREX2TAB PO; +ENAL10TA16 PO; +GBPN600T PO; +OXYC1TAB12 PO; +VILA40TA PO; +ZOLP10TA PO
--- NOTE | 2021-12-04 14:28 | Diagnostic Imaging Report ---
INDICATION: History of left-sided renal calculus. COMPARISON: 12/02/2021 FINDINGS: 2 frontal radiographic views of the abdomen were obtained. There is a dominant 1.1 cm rounded extraosseous calcification projecting over the pelvis of the left renal shadow. Additional smaller calculus is also seen projecting over the inferior pole of the left renal shadow. No unexpected radiopaque foreign bodies are seen. Small bowel loops are nondistended. There is no large collection of free intraperitoneal air. Included portions lung bases are clear. IMPRESSION: 1. Left-sided renal calculi as above. 2. Nonobstructed small bowel gas pattern. Dictated by: Dictated on workstation # [id number]
== END ==
LOC: RAD 12:57
PROVIDERS: ATTEND Urology
DX: N20.0 Calculus of kidney (principal)
CPT/HCPCS: 74018

== ENCOUNTER 2021-12-05 05:29 | Outpatient (CLI) | payer BC ==
[~2021-12-05] VITALS: Ht 162 cm; Wt 93.0 kg
[~2021-12-05 05:29] MED LIST changes: -BREX2TAB PO; -ENAL10TA16 PO; -GBPN600T PO; -OXYC1TAB12 PO; -VILA40TA PO; -ZOLP10TA PO
[2021-12-05] MEDS ORDERED: OXYC1TAB12 PO (09:34)
[2021-12-05] MEDS ORDERED: ENAL10TA16 PO (09:34)
[2021-12-05] MEDS ORDERED: ZOLP10TA PO (09:34)
[2021-12-05] MEDS ORDERED: VILA40TA PO (09:34)
[2021-12-05] MEDS ORDERED: BREX2TAB PO (09:34)
[2021-12-05] MEDS ORDERED: GBPN600T PO ×2 (09:34)
== END 2021-12-05 09:38 | disposition home or self-care (01) ==
LOC: PREOP 05:29
PROVIDERS: ATTEND Urology
DX: Z01.818 Encounter for other preprocedural examination (principal)

== ENCOUNTER 2021-12-10 06:20 | Day surgery (SDC) | payer BC ==
[~2021-12-10] VITALS: Ht 162 cm; Wt 93.0 kg
[2021-12-10] VITALS (9 sets, daily range): BP systolic 126–148; BP diastolic 63–92
[~2021-12-10 06:20] MED LIST changes: +BREX2TAB PO; +ENAL10TA16 PO; +GBPN600T PO; +OXYC1TAB12 PO; +VILA40TA PO; +ZOLP10TA PO
--- NOTE | 2021-12-10 07:07 | Progress Note-Pre Operative ---
Pre-Operative Progress Note H&P Reviewed The H&P was reviewed, patient examined and no changes noted. Date Seen by Provider: December 10, 2021 Time Seen by Provider: 07:07 Date H&P Reviewed: December 10, 2021 Time H&P Reviewed: 07:07 Pre-Operative Diagnosis: LT RENAL STONE CANDACE LEWIS MD December 10, 2021 07:07
[2021-12-10] MEDS ORDERED: cefTRIAXone 1 GM PRE-MIX 50 ML IV ONE ×2 (07:30→08:20)
[2021-12-10] MEDS ORDERED: LACTATED RINGERS 1,000 ML IV PRN (07:30)
--- NOTE | 2021-12-10 07:33 | Diagnostic Imaging Report ---
INDICATION: History of left-sided renal calculus, extracorporeal shock wave lithotripsy. TECHNIQUE: Single supine view of the abdomen 6:51 AM CORRELATION STUDY: 12/04/2021 FINDINGS: 11 mm calcification left renal pelvis with the smaller one over the inferior pole again demonstrated. No definitive calcification right renal silhouette and/or along the expected course of either ureter. Bowel gas pattern is nonobstructed. IMPRESSION: 1. Left renal calcification. Dictated by: Dictated on workstation # [id number]
[2021-12-10] MEDS ORDERED: ONDANSETRON 4 MG/2 ML (SDV) Z0FRAN ONE (08:43)
[2021-12-10] MEDS ORDERED: MIDAZOLAM 2 MG/2 ML (VERSED) VIAL ONE (08:43)
[2021-12-10] MEDS ORDERED: fentaNYL INJ 100 MCG/2 ML AMP ONE (08:43)
[2021-12-10] MEDS ORDERED: SEVOFLURANE (ULTANE) 15 ML INHAL SOLN ONE ×2 (08:43→09:35)
[2021-12-10] MEDS ORDERED: LIDOCAINE PF 2% 5 ML (XYLOCAINE) VIAL ONE (08:43)
[2021-12-10] MEDS ORDERED: proPOfol 200 MG/20 ML (DIPRIVAN) VIAL IV ONE (08:43)
[2021-12-10] MEDS ORDERED: FUROSEMIDE 40 MG/4 ML INJ (LASIX) ONE (08:45)
[2021-12-10] MEDS ORDERED: KETOROLAC 30 MG/ML VIAL ONE (08:45)
--- NOTE | 2021-12-10 09:18 | Progress Note-Post Operative ---
Post-Operative Progess Note Surgeon (s)/Bistro Attendant (s) Surgeon CANDACE LEWIS MD Bistro Attendant: NONE Pre-Operative Diagnosis LT RENAL STONE Post-Operative Diagnosis SAME Procedure & Operative Findings Date of Procedure 12/10/21 Procedure Performed/Findings LT ESWL Anesthesia Type GENERAL Estimated Blood Loss Estimated blood loss (mL): NONE Specimens/Packing Specimens Removed NONE Packing: NONE CANDACE LEWIS MD December 10, 2021 09:18
--- NOTE | 2021-12-10 09:18 | Discharge Inst-Urology ---
Discharge Inst-Urology Reconcile Patient Problems Problems Reviewed?: Yes Final Diagnosis LT RENAL STONE Patient Instructions/Follow Up Plan/Assessment/Instructions Please make appointment to been seen in office in 2 weeks. KUB prior to it KUB on way home Post ESWL instructions Increase oral fluids for 48 hours and then as needed. Diet and Activity as tolerated. If questions or concerns contact your physician Or seek help at emergency department. CANDACE LEWIS MD December 10, 2021 09:18
[2021-12-10] MEDS ORDERED: HYDROmorphone 2 MG/ML VIAL (DILAUDID) IV ONE (09:45)
[2021-12-10] MEDS ORDERED: ONDANSETRON 4 MG/2 ML (SDV) Z0FRAN IVP PRN (09:45)
[2021-12-10] MEDS ORDERED: KETO10TA PO (10:28)
[2021-12-10] MEDS ORDERED: NITR-65 PO (10:28)
[2021-12-10] MEDS ORDERED: TMSL.4C PO (10:28)
[2021-12-10] MEDS ORDERED: HYDROcodone/APAP 5 MG/325 MG (LORTAB) TAB PO ONE (10:35)
[2021-12-10] MEDS ORDERED: HYDROcodone/APAP 5 MG/325 MG (LORTAB) TAB ONE (10:40)
--- NOTE | 2021-12-10 11:44 | Diagnostic Imaging Report ---
INDICATION: Post ESWL. COMPARISON: Exam is compared with study from 12/10/2021. FINDINGS: The dominant 11 mm discrete calculus at the left renal pelvis is no longer appreciable. Instead we note multiple small stone fragments projecting over the mid to lower pole of the left kidney, which may reflect that stone's interval maceration. Pelvic phleboliths are unchanged in orientation. No new pelvic calcification. No bowel obstruction. There are clips at the gallbladder fossa. IMPRESSION: Apparent interval maceration of the dominant left renal stone burden with no adverse development. No appreciable ureteral or pelvic calculus. Dictated by: Dictated on workstation # [id number]
--- NOTE | 2021-12-10 12:43 | OPERATIVE REPORT ---
DATE OF SERVICE: 12/10/2021 PREOPERATIVE DIAGNOSIS: Left renal stone. POSTOPERATIVE DIAGNOSIS: Left renal stone. OPERATION PERFORMED: Left ESWL. SURGEON: Madhav Lewis MD ANESTHESIA: General. COMPLICATIONS: None. DESCRIPTION OF PROCEDURE: Under satisfactory general anesthesia, the patient in supine position on the ESWL table, the left renal stone was localized. Shocks were delivered at kV of 6. Total of 2500 shocks completely fragmented the stone that was hardly visualized. The patient received 40 mg of Lasix and 30 mg of Toradol IV at the end of the procedure. She tolerated the procedure and anesthesia well and was sent to recovery room in stable condition. Job ID: [id number] DocumentID: [id number] Dictated Date: 12/10/2021 09:35:00 Computer Technologist Date: 12/10/2021 12:42:15 Dictated By: MADHAV LEWIS MD
--- NOTE | 2021-12-11 08:04 | Anesthesia-General Post-Op ---
General Patient Condition Mental Status/LOC: Same as Preop Cardiovascular: Satisfactory Nausea/Vomiting: Absent Respiratory: Satisfactory Pain: Controlled Complications: Absent Post Op Complications Complications None Follow Up Care/Instructions Patient Instructions None needed. Anesthesia/Patient Condition Patient Condition Patient is doing well, no complaints, stable vital signs, no apparent adverse anesthesia problems. No complications reported per nursing. D/C home per [facility] Criteria: Yes ALCON PLATT CRNA December 11, 2021 08:04
== END 2021-12-10 11:40 | disposition home or self-care (01) ==
LOC: SDC 06:20
PROVIDERS: ATTEND Urology
DX: N20.0 Calculus of kidney (principal); I10 Essential (primary) hypertension; M79.7 Fibromyalgia; Z86.73 Personal history of transient ischemic attack (TIA), and cerebral infarction without residual deficits; F17.210 Nicotine dependence, cigarettes, uncomplicated; Z79.899 Other long term (current) drug therapy
CPT/HCPCS: 74018; 87081

== ENCOUNTER → 2021-12-26 | Outpatient (CLI) | payer BC ==
[~2021-12-26] MED LIST changes: +KETO10TA PO; +NITR-65 PO
--- NOTE | 2021-12-26 16:52 | Diagnostic Imaging Report ---
EXAMINATION: Abdomen 1 view HISTORY: Renal stone, status post lithotripsy. COMPARISON: 12/10/2021 FINDINGS: No calcifications are seen projecting over the kidneys or ureters. There are cholecystectomy clips. Phleboliths are present in the pelvis. No dilated bowel or free air. IMPRESSION: 1. No calcifications are seen projecting over the kidneys or ureters. Dictated by: Dictated on workstation # [id number]
== END ==
LOC: RAD 14:49
PROVIDERS: ATTEND Urology
DX: N20.0 Calculus of kidney (principal); Z98.890 Other specified postprocedural states
CPT/HCPCS: 74018

== ENCOUNTER → 2022-05-29 | Outpatient (CLI) | payer BC ==
--- NOTE | 2022-05-29 09:34 | Diagnostic Imaging Report ---
PROCEDURE: MRI right joint upper extremity without contrast. TECHNIQUE: Multiplanar, multisequence non contrast-enhanced MRI of the right upper extremity was accomplished. INDICATION: Right shoulder pain and arm pain. Right neck pain. COMPARISON: None FINDINGS: No acute fracture or dislocation is seen in the right shoulder. Alignment appears normal. There is no joint effusion. No focal bony lesions are identified. There are moderate degenerative changes in the acromioclavicular joint. The supraspinatus tendon is intact. The infraspinatus tendon appears intact. The teres minor tendon is intact. The subscapularis tendon is intact. No focal muscular atrophy is seen. The long head of the biceps tendon is normal in course and signal. The right glenoid labrum is suboptimally evaluated in the absence of intra-articular contrast. No para labral cyst is seen. The acromion has a slightly curved undersurface. The coracoclavicular and coracoacromial ligaments are intact. IMPRESSION: 1. No high-grade partial-thickness or full-thickness tear is seen in the rotator cuff. 2. Moderate degenerative changes in the acromioclavicular joint. Dictated by: Dictated on workstation # [id number]
--- NOTE | 2022-05-29 11:27 | Diagnostic Imaging Report ---
Clinical Indication: Patient with right-sided neck right shoulder and arm pain. No known injury. Possible pinched nerve. Exam: MRI of the cervical spine performed without IV contrast. Sequences include sagittal T1, sagittal T2, sagittal T2 fat-sat, and axial T2. Comparison: None. Findings: There is no acute cervical spine fracture or dislocation. There is no significant Modic degenerative signal changes. Cervical spine is normal in alignment. Limited visualization of posterior fossa is unremarkable. There is localized cord deformity seen at the C5-C6 and C6-C7 levels due to disk herniations. There is no definite cord signal abnormality seen. There is no significant paraspinal soft tissue abnormality. C1-C2: Unremarkable. C2-C3: There is mild left facet arthropathy. There is no significant central spinal canal or neural foramen narrowing. C3-C4: There is mild left facet arthropathy. There is no significant central spinal canal or neural foramen narrowing. C4-C5: There is no significant central spinal canal or neural foramen narrowing. C5-C6: There is a small right paracentral/subarticular disk extrusion/herniation which causes moderate right neural foramen narrowing. There is moderate central canal stenosis. There is no significant left neural foramen narrowing. There is mild loss of disk space height. C6-C7: There is a broad posterior disk extrusion/herniation with superimposed moderate sized left paracentral/subarticular disk extrusion/herniation. There is severe central canal stenosis with deformity of the cervical cord. There is severe narrowing of the left lateral recess. There is at least moderate right neural foramen narrowing and moderate left neural foramen narrowing. C7-T1: Unremarkable. IMPRESSION: 1: There is a broad C6-C7 posterior disk herniation with superimposed moderate sized left paracentral/left subarticular disk extrusion/herniation. There is severe central canal stenosis and deformity of the cervical cord. There is severe narrowing of the left lateral recess and moderate bilateral neural foramen narrowing. 2: There is a C5-C6 small right paracentral/subarticular disk herniation which causes moderate right neural foramen narrowing and moderate central canal stenosis. There is localized deformity of the cervical cord. 3: There is no abnormal cord signal seen on this exam. 4: The remainder of the cervical spine demonstrates mild degenerative disease. Dictated by: Dictated on workstation # [id number]
== END ==
LOC: RAD 07:33
PROVIDERS: ATTEND Nurse Practitioner Family
DX: M19.011 Primary osteoarthritis, right shoulder (principal); M50.223 Other cervical disc displacement at C6-C7 level; M48.02 Spinal stenosis, cervical region
CPT/HCPCS: 72141; 73221

== ENCOUNTER 2022-10-06 10:23 | Observation (INO) | payer BC ==
[~2022-10-06] VITALS: Ht 163 cm; Wt 78.3 kg
[2022-10-06] MEDS ORDERED: PRAZ1CAP PO (10:46)
[2022-10-06 11:06] LABS: BASOPHILS % (AUTO) 1 % (0-10); EOSINOPHILS % (AUTO) 0 % (0-10); HEMATOCRIT 43 % (35-52); HEMOGLOBIN 15.5 g/dL (11.5-16.0); LYMPHOCYTES % (AUTO) 26 % (12-44); MEAN CORPUSCULAR HEMOGLOBIN 34 pg (25-34); MEAN CORPUSCULAR HGB CONC 36 g/dL (32-36); MEAN CORPUSCULAR VOLUME 95 fL (80-99); MEAN PLATELET VOLUME 9.4 fL (9.0-12.2); MONOCYTES # (AUTO) 0.5 10^3/uL (0.0-1.0); MONOCYTES % (AUTO) 6 % (0-12); NEUTROPHILS # (AUTO) 5.2 10^3/uL (1.8-7.8); NEUTROPHILS % (AUTO) 67 % (42-75); PLATELET COUNT 573 10^3/uL (130-400); WHITE BLOOD COUNT 7.8 10^3/uL (4.3-11.0)
[2022-10-06 11:10] LABS: ALBUMIN 4.3 GM/DL (3.2-4.5)
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
[2022-10-06 11:12] LABS: CALCIUM 10.4 MG/DL (8.5-10.1)
[2022-10-06 11:13] LABS: TOTAL PROTEIN 7.7 GM/DL (6.4-8.2)
[2022-10-06 11:15] LABS: BILIRUBIN,TOTAL 0.5 MG/DL (0.1-1.0)
[2022-10-06 11:17] LABS: CREATININE SERUM 1.37 MG/DL (0.60-1.30)
[2022-10-06 11:19] LABS: MAGNESIUM 2.3 MG/DL (1.6-2.4); POTASSIUM 2.1 MMOL/L (3.6-5.0)
--- NOTE | 2022-10-06 11:23 | Diagnostic Imaging Report ---
INDICATION: Palpitations Frontal chest obtained at 11:19 a.m. and compared with 05/03/2019. Heart and mediastinal silhouette are normal in appearance. The lungs are clear. There is no pneumothorax or pleural fluid. IMPRESSION: Negative chest. Dictated by: Dictated on workstation # [id number]
[2022-10-06] MEDS ORDERED: NS IV 1000 ML 1,000 ML IV SCH (11:30)
[2022-10-06] MEDS: POTASSIUM CL 10MEQ/50ML IVPB 50 ML IV SCH ×11 (11:31→23:14)
[2022-10-06 11:37] LABS: BILIRUBIN,URINE NEGATIVE (NEGATIVE); CLARITY,URINE CLEAR; COLOR,URINE YELLOW; GLUCOSE, URINE (UA) NEGATIVE (NEGATIVE); KETONES,URINE NEGATIVE (NEGATIVE); LEUKOCYTE ESTERASE ,URINE NEGATIVE (NEGATIVE); NITRITE,URINE NEGATIVE (NEGATIVE); PH,URINE 6.5 (5-9); PROTEIN,URINE 1+ (NEGATIVE)
[2022-10-06 11:59] LABS: AMORPHOUS SEDIMENT,UR FEW AMOR URATES /LPF; BACTERIA,URINE FEW /HPF; SQUAMOUS EPITHELIAL CELL,UR 0-2 /HPF
[2022-10-06 12:10] LABS: AMPHETAMINE SCREEN, URINE NEGATIVE (NEGATIVE); BARBITURATE SCREEN URINE NEGATIVE (NEGATIVE); BENZODIAZEPINES SCREEN URINE NEGATIVE (NEGATIVE); CANNABINOID SCREEN, URINE NEGATIVE (NEGATIVE); COCAINE SCREEN URINE NEGATIVE (NEGATIVE); METHADONE STAT NEGATIVE (NEGATIVE); OPIATE SCREEN URINE NEGATIVE (NEGATIVE); OXYCODONE STAT NEGATIVE (NEGATIVE); PROPOXYPHENE STAT NEGATIVE (NEGATIVE); TRICYCLIC ANTIDEPRESSANTS SCRE NEGATIVE (NEGATIVE)
[2022-10-06 14:30] VITALS: BP 145/78
[2022-10-06] MEDS ORDERED: diphenhydrAMINE 25 MG TAB (BENADRYL) PO PRN (14:45)
[2022-10-06] MEDS ORDERED: NS IV 500 ML 500 ML IV PRN (14:45)
[2022-10-06] MEDS ORDERED: CALCIUM CARBONATE 500 MG (TUMS) TAB.CHEW PO PRN (14:45)
[2022-10-06] MEDS ORDERED: LACTULOSE SYRUP 10GM/15ML (ENULOSE) 30ML UDC PO PRN (14:45)
[2022-10-06] MEDS ORDERED: ONDANSETRON 4 MG/2 ML (SDV) Z0FRAN IV PRN (14:45)
[2022-10-06] MEDS ORDERED: BISACODYL 10 MG SUPP (DULCOLAX) PR PRN (14:45)
[2022-10-06] MEDS ORDERED: ACETAMINOPHEN 325 MG TABLET PO PRN ×2 (14:45→18:45)
[2022-10-06] MEDS ORDERED: ANTACID SUSP 30 ML UDC (MYLANTA) PO PRN (14:45)
[2022-10-06] MEDS ORDERED: diphenhydrAMINE 50 MG/ML INJ (BENADRYL) IVP PRN (14:45)
[2022-10-06] MEDS ORDERED: MELATONIN 3 MG TABLET PO PRN (14:45)
[2022-10-06] MEDS ORDERED: ONDANSETRON 4 MG (ZOFRAN) ORAL DISSOLVE TAB PO PRN (14:45)
[2022-10-06] MEDS ORDERED: polyethylene glycoL POWDER 17 GM (MIRALAX) PACK PO PRN (14:45)
[2022-10-06] MEDS ORDERED: MILK OF MAGNESIA 400 MG/5 ML 30 ML UDC PO PRN (14:45)
[2022-10-06] MEDS ORDERED: KCL 20 MEQ TAB (K-DUR) PO NR ×2 (15:00→19:15)
[2022-10-06 15:38] VITALS: BP 141/88
[2022-10-06] MEDS ORDERED: PRAZ1CAP2 PO (15:39)
[2022-10-06] MEDS ORDERED: ZOLP5TAB7 PO (15:39)
[2022-10-06] MEDS ORDERED: CELE-63 PO (15:39)
[2022-10-06] MEDS ORDERED: OXYC-191 PO (15:39)
[2022-10-06] MEDS ORDERED: ENAL20TA16 PO (15:39)
[2022-10-06] MEDS: LACTATED RINGERS 1,000 ML IV SCH (15:54)
[2022-10-06] MEDS ORDERED: ZOLPIDEM 5 MG (AMBIEN) TAB PO PRN ×2 (16:30→21:30)
[2022-10-06] MEDS: oxyCODONE/APAP 10/325MG (PERCOCET 10) TABLET PO PRN (17:04)
[2022-10-06 17:22] LABS: POTASSIUM 2.4 MMOL/L (3.6-5.0)
[2022-10-06 19:26] VITALS: BP 159/78
[2022-10-06] MEDS: CIPROFLOXACIN 500 MG (CIPRO) TABLET PO SCH (19:58)
[2022-10-06] MEDS: SENNOSIDES 8.6 MG (SENOKOT) TAB PO SCH (20:13)
[2022-10-06] MEDS: DOCUSATE SODIUM 100 MG (COLACE) CAP PO SCH (20:13)
[2022-10-06] MEDS ORDERED: POTASSIUM CL 10MEQ/50ML IVPB 50 ML IV SCH (21:45)
[2022-10-07] MEDS: LACTATED RINGERS 1,000 ML IV SCH ×2 (00:08→06:39)
[2022-10-07 00:12] VITALS: BP 135/77
[2022-10-07 03:51] VITALS: BP 127/66
[2022-10-07] MEDS: oxyCODONE/APAP 10/325MG (PERCOCET 10) TABLET PO PRN (05:42)
[2022-10-07] MEDS ORDERED: POTASSIUM CL 10MEQ/50ML IVPB 50 ML IV SCH ×2 (06:00→10:30)
[2022-10-07] MEDS ORDERED: MAGNESIUM 1 GM/100 ML IVPB 100 ML IV SCH (06:00)
[2022-10-07] MEDS ORDERED: POTASSIUM BICARB 20 MEQ (EFFER-K) TABLET PO SCH (06:00)
[2022-10-07] MEDS ORDERED: KCL 20 MEQ TAB (K-DUR) PO SCH (06:00)
[2022-10-07 06:13] LABS: CALCIUM 8.6 MG/DL (8.5-10.1); CREATININE SERUM 0.78 MG/DL (0.60-1.30); MAGNESIUM 1.8 MG/DL (1.6-2.4); POTASSIUM 2.9 MMOL/L (3.6-5.0)
[2022-10-07] MEDS: MAGNESIUM 1 GM/100 ML IVPB 100 ML IV SCH ×2 (06:38→07:56)
[2022-10-07] MEDS: POTASSIUM CL 10MEQ/50ML IVPB 50 ML IV SCH ×4 (06:38→10:05)
[2022-10-07 07:14] VITALS: BP 125/84
[2022-10-07] MEDS ORDERED: KCL 20 MEQ TAB (K-DUR) PO ONE ×2 (08:15→10:15)
[2022-10-07] MEDS: CIPROFLOXACIN 500 MG (CIPRO) TABLET PO SCH (08:40)
[2022-10-07] MEDS: SENNOSIDES 8.6 MG (SENOKOT) TAB PO SCH (08:41)
[2022-10-07] MEDS: DOCUSATE SODIUM 100 MG (COLACE) CAP PO SCH (08:41)
[2022-10-07] MEDS ORDERED: ENALAPRIL 10 MG (VASOTEC) TAB PO SCH (09:00)
--- NOTE | 2022-10-07 16:15 | Short Stay Summary-Hospitalist ---
History of Present Illness HPI/Chief Complaint Avelina Saldivar is a 42 year old female with PMH HTN, tobacco abuse, insomnia, who presented with weakness. She was sent to the ER by her FISHER SCALLOP due to low potassium. She had been having palpitations. She denies chest pain. She denies shortness of breath. She denies nausea and vomiting. She denies diarrhea. She has not been eating and drinking well. She has not had a good appetite. She was just started on Cipro due to UTI. Source: patient Exam Limitations: no limitations Date Seen 10/07/22 Time Seen by a Provider: 09:50 Attending Physician Shala Carrera MD PCP Admitting Physician: Patricia Blue MD Attending Physician: Patricia Blue MD Referring Physician Date of Admission Oct 06, 2022 at 14:29 Home Medications & Allergies Home Medications Reviewed patient Home Medication Reconciliation performed by pharmacy medication reconciliations pharmacy technician infusion and/or nursing. Patients Allergies have been reviewed. Allergies Allergies Coded Allergies Sulfa (Sulfonamide Antibiotics) (Unverified Allergy, Severe, VOMITING, 08/12/14) Uncoded Allergies TB SERUM ( Allergy, Unknown, REDNESS, 08/12/14) Past Rddwngq-Fbqadx-Bilhym Hx Patient Social History Tobacco Use?: Yes Tobacco type used: Cigarettes Smoking Status: Current Everyday Smoker Smokeless Tobacco Frequency: Current Everyday User Use of E-Cig and/or Vaping dev: No Substance use?: No Alcohol Use?: No Pt feels they are or have been: No Immunizations Up To Date Tetanus Booster (TDap): Unknown Hepatitis A: Yes Hepatitis B: Yes Seasonal Allergies Seasonal Allergies: No Current Status status: No status: No Advance Directives: No Communicates: Verbally Primary Language: Peruvian Preferred Spoken Language: Peruvian Is interpretation needed?: No Sensory deficits: Vision impairment Implanted or Applied Medical D: None Past Medical History Surgeries: Gallbladder, Hysterectomy Currently Using CPAP: No Currently Using BIPAP: No Cardiomyopathy, High Cholesterol, Hypertension 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 Kidney Stones Depression Blood Disorders: No Family Medical History Cardiovascular disease 19 FATHER 19 MOTHER Diabetes mellitus 19 FATHER Hypercholesterolemia 19 FATHER Hypertension 19 FATHER G8 BROTHER Kidney disease 19 FATHER Myocardial infarction 19 FATHER Thyroid disease 19 MOTHER No Family History of: AIDS Abdominal aortic aneurysm Alcoholism Alzheimer's disease Arthritis Asthma Completed stroke Dementia Drug abuse Glaucoma Parkinson's disease Prostate cancer Psychosocial problem Respiratory disorder Seizure disorder Severe allergy Tuberculosis Review of Systems Constitutional: weakness EENTM: no symptoms reported Respiratory: no symptoms reported Cardiovascular: palpitations Gastrointestinal: no symptoms reported Physical Exam Physical Exam Vital Signs Vital Signs - First Documented 10/06/22 10:31 Temp 36.8 Pulse 85 Resp 18 B/P (MAP) 161/109 (126) Pulse Ox 100 O2 Delivery Room Air Capillary Refill : Less Than 3 Seconds Height, Weight, BMI Height: 5'4.00" Weight: 188lbs. oz. 85.537894tr; 29.47 BMI Method:Stated General Appearance: No Apparent Distress, WD/WN Eyes: Bilateral Eye Normal Inspection, Bilateral Eye PERRL, Bilateral Eye EOMI HEENT: PERRL/EOMI, Pharynx Normal Neck: Normal Inspection, Supple Respiratory: Lungs Clear, Normal Breath Sounds, No Respiratory Distress Cardiovascular: Regular Rate, Rhythm, No Edema, No Murmur Gastrointestinal: Normal Bowel Sounds, Non Tender, Soft Extremity: Normal Inspection, No Pedal Edema Neurologic/Psychiatric: Alert, Oriented x3 Skin: Normal Color, Warm/Dry Results Results/Procedures Labs Laboratory Tests 10/06/22 10:40 10/06/22 16:50 10/07/22 05:15 Patient resulted labs reviewed. Short Stay Diagnosis Discharge Diagnosis-Short Stay Admission Diagnosis Hypokalemia Final Discharge Diagnosis Hypokalemia Conclusion Plan Hypokalemia Replaced and improved Repeat BMP in one week ALLY Improved Hyperchloremic metabolic acidosis Stop IV fluids UTI Continue Cipro Diagnosis/Problems Diagnosis/Problems (1) Hypokalemia Status: Acute (2) Hyperchloremic metabolic acidosis Status: Acute (3) ALLY (acute kidney injury) Status: Acute (4) UTI (urinary tract infection) Status: Acute Clinical Quality Measures AMI/AHF: ASA po Prior to arrival: No Copy Copies To 1: SHALA CARRERA MD, JARIN M MD Oct 07, 2022 16:15
== END 2022-10-07 11:35 | disposition home or self-care (01) ==
LOC: EDUNIT# 10:23 → ER 10:25 → UNDOADMOB 14:29 → 4TH 14:29 → UNDODISOB 10-07 11:35
PROVIDERS: ADMIT Internal Medicine; ATTEND Internal Medicine
DX: E87.6 Hypokalemia (principal); F17.210 Nicotine dependence, cigarettes, uncomplicated; N17.9 Acute kidney failure, unspecified; N39.0 Urinary tract infection, site not specified; E87.8 Other disorders of electrolyte and fluid balance, not elsewhere classified; E87.20 Acidosis, unspecified
CPT/HCPCS: 36415; 71045; 80048; 80053; 80306; 81000; 82010; 83735; 84132; 85025; 87088; 93005; 96361; 96366; 96376; G0378

== ENCOUNTER 2022-11-29 17:58 | Observation (INO) | payer BC ==
[~2022-11-29] VITALS: Ht 162.5 cm; Wt 69.0 kg
[~2022-11-29 17:58] MED LIST changes: +CELE-63 PO; +ENAL-70; +ENAL-70 PO; -ENAL10TA16 PO; -ENAL20TA16; +ENLP10T PO; +OXYC-191 PO; +PRAZ1CAP PO; +PRAZ1CAP2 PO; +ZOLP5TAB7 PO
--- NOTE | 2022-11-29 19:17 | ED General ---
General Chief Complaint: General Problems/Pain Stated Complaint: EXHAUSTION Nursing Triage Note: PT AMB TO [facility] 6 WITH COMPLAINT OF EXHAUSTION AND NOT FEELING WELL. STATES SHE HAS BEEN BATTLING LOW K+ FOR OVER 6 WEEKS. STATES ON THURSDAY, HER K+ WAS 2.6 AND WAS TOLD TO INCREASE DOSE. STATES SHE WAS ALSO CALLED AND TOLD SHE HAD A UTI AND STARTED ON ANTIBIOTICS. SAW BOTH PCP AND KIDNEY DR LAST WEEK. Source of Information: Patient Exam Limitations: No Limitations History of Present Illness Date Seen by Provider: November 29, 2022 Time Seen by Provider: 19:14 Initial Comments Patient is a 42-year-old female who presents the ED with generalized weakness, short of breath, fatigue. Symptoms started this evening after taking a shower. States she started feeling short of breath, weak, muscle pains, heart palpitations. She reports similar symptoms over the past 4 to 6 weeks. She states she followed up with a field sales manager this past Dr. Nielsen. States she had lab work drawn. She also followed up with her primary care physician on . She reports increase of her spironolactone. Her field sales manager increased her potassium to 120 mill equivalent per day.. She states she had a potassium of 2.6. She states her potassium typically runs around 3. she denies of any current chest pain, abdominal pain vomiting, diarrh ea. She states when her potassium does get low she starts to feel nauseous and does vomit with eating. Intermittent vomiting over the past few months. She is requesting a check of her potassium. She states she has been seen here in the ER and admitted for low potassium. patient currently on Keflex for UTI since . No current urinary symptoms today. Patient denies history of heart disease, COPD. Allergies and Home Medications Allergies Coded Allergies: Sulfa (Sulfonamide Antibiotics) (Unverified Allergy, Severe, VOMITING, 08/12/14) Uncoded Allergies: TB SERUM (Allergy, Unknown, REDNESS, 08/12/14) Patient Home Medication List Home Medication List Reviewed: Yes Celecoxib (Celecoxib) 200 Mg Capsule, 200 MG PO HS, (Reported) Entered as Reported by: GERRY ARREOLA on 10/06/22 1539 Enalapril Maleate (Enalapril Maleate) 20 Mg Tablet, 40 MG PO DAILY, (Reported) Entered as Reported by: GERRY ARREOLA on 10/06/221538 Oxycodone HCl/Acetaminophen (Endocet 10-325 mg Tablet) 10 Mg-325 Mg Tablet, 1-2 EA PO Q6H PRN for PAIN-MODERATE (5-7), (Reported) Entered as Reported by: GERRY ARREOLA on 10/06/221538 Prazosin HCl (Prazosin HCl) 1 Mg Capsule, 3 MG PO HS, (Reported) Entered as Reported by: GERRY ARREOLA on 10/06/221538 Zolpidem Tartrate (Zolpidem Tartrate) 5 Mg Tablet, 10 MG PO HS, (Reported) Entered as Reported by: GERRY ARREOLA on 10/06/221538 Review of Systems Review of Systems Constitutional: No diaphoresis; malaise, weakness EENTM: No ear pain, No blurred vision Respiratory: No short of breath, No stridor, No wheezing Cardiovascular: No chest pain Gastrointestinal: No abdominal pain, No diarrhea, No nausea, No vomiting Genitourinary: No decreased output, No discharge Musculoskeletal: No back pain, No joint pain All Other Systems Reviewed Negative Unless Noted: Yes Past Ckwnszx-Vkmfuo-Eyweku Hx Patient Social History Tobacco Use?: Yes Smoking Status: Current Everyday Smoker Use of E-Cig and/or Vaping dev: No Substance use?: No Alcohol Use?: No Pt feels they are or have been: No Immunizations Up To Date Tetanus Booster (TDap): Unknown Seasonal Allergies Seasonal Allergies: No Past Medical History Surgery/Hospitalization HX: HTN, HYSTERECTOMY, ANDRADE, KIDNEY STONES Gallbladder, Hysterectomy Respiratory: No Currently Using CPAP: No Currently Using BIPAP: No Cardiac: Yes (CARDIOMYOPATHY WITH 2ND , LAST ECHO 58%, SEE DR HUBBARD) Cardiomyopathy, High Cholesterol, Hypertension Neurological: Yes (STOKE WITH 1ST 18 YEARS AGO) Stroke Reproductive Disorders: Yes (CPP, ) Female Reproductive Disorders: Endometriosis, 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 Genitourinary: Yes Kidney Stones Gastrointestinal: No Musculoskeletal: No Endocrine: No HEENT: No Cancer: No Psychosocial: Yes Depression Integumentary: No Blood Disorders: No Family Medical History Cardiovascular disease 19 FATHER 19 MOTHER Diabetes mellitus 19 FATHER Hypercholesterolemia 19 FATHER Hypertension 19 FATHER G8 BROTHER Kidney disease 19 FATHER Myocardial infarction 19 FATHER Thyroid disease 19 MOTHER No Family History of: AIDS Abdominal aortic aneurysm Alcoholism Alzheimer's disease Arthritis Asthma Completed stroke Dementia Drug abuse Glaucoma Parkinson's disease Prostate cancer Psychosocial problem Respiratory disorder Seizure disorder Severe allergy Tuberculosis Physical Exam Vital Signs Vital Signs - First Documented 11/29/22 18:50 Temp 36.5 Pulse 105 Resp 10 B/P (MAP) 175/111 (132) Pulse Ox 98 O2 Delivery Room Air Capillary Refill : Less Than 3 Seconds Height, Weight, BMI Height: 5'4.00" Weight: 188lbs. oz. 85.351720kh; 26.00 BMI Method:Stated General Appearance: No Apparent Distress, WD/WN Eyes: Bilateral Eye Normal Inspection, Bilateral Eye PERRL, Bilateral Eye EOMI HEENT: PERRL/EOMI, TMs Normal, Normal ENT Inspection, Pharynx Normal Neck: Full Range of Motion, Normal Inspection, Non Tender, Supple Respiratory: Chest Non Tender, Lungs Clear, Normal Breath Sounds, No Accessory Muscle Use, No Respiratory Distress Cardiovascular: Regular Rate, Rhythm, No Edema, No Gallop, No JVD Gastrointestinal: Normal Bowel Sounds, No Organomegaly, No Pulsatile Mass Back: Normal Inspection, No CVA Tenderness, No Vertebral Tenderness Extremity: Normal Capillary Refill, Normal Inspection, Normal Range of Motion, Non Tender Neurologic/Psychiatric: Alert, Oriented x3, No Motor/Sensory Deficits, Normal Mood/Affect, administrative office specialist II-XII Norm as Tested Progress/Results/Core Measures Suspected Sepsis SIRS Temperature: Pulse: 105 Respiratory Rate: 10 Laboratory Tests 11/29/22 19:35: White Blood Count 10.8 Blood Pressure 175 /111 Mean: 132 Laboratory Tests 11/29/22 19:35: Platelet Count 458H, Total Bilirubin 0.4 Results/Orders Lab Results Laboratory Tests Test 11/29/22 19:30 11/29/22 19:35 Range/Units Urine Color ITALO H Urine Clarity CLEAR Urine pH 6.5 5-9 Urine Specific Burke 1.010 L 1.016-1.022 Urine Protein 3+ H NEGATIVE Urine Glucose (UA) 1+ H NEGATIVE Urine Ketones 1+ H NEGATIVE Urine Nitrite POSITIVE H NEGATIVE Urine Bilirubin 2+ H NEGATIVE Urine Urobilinogen >=8.0 < = 1.0 MG/DL Urine Leukocyte Esterase TRACE H NEGATIVE Urine RBC (Auto) 2+ H NEGATIVE Urine RBC 10-25 H /HPF Urine WBC 0-2 /HPF Urine Squamous Epithelial Cells 5-10 /HPF Urine Renal Epithelial Cells NONE /HPF Urine Crystals NONE /LPF Urine Bacteria FEW H /HPF Urine Casts PRESENT /LPF Urine Hyaline Casts 2-5 H /LPF Urine Granular Casts RARE /LPF Urine Mucus NEGATIVE /LPF Urine Culture Indicated YES White Blood Count 10.8 4.3-11.0 10^3/uL Red Blood Count 4.83 3.80-5.11 10^6/uL Hemoglobin 16.0 11.5-16.0 g/dL Hematocrit 45 35-52 % Mean Corpuscular Volume 92 80-99 fL Mean Corpuscular Hemoglobin 33 25-34 pg Mean Corpuscular Hemoglobin Concent 36 32-36 g/dL Red Cell Distribution Width 14.8 H 10.0-14.5 % Platelet Count 458 H 130-400 10^3/uL Mean Platelet Volume 9.5 9.0-12.2 fL Immature Granulocyte % (Auto) 1 % Neutrophils (%) (Auto) 70 42-75 % Lymphocytes (%) (Auto) 22 12-44 % Monocytes (%) (Auto) 6 0-12 % Eosinophils (%) (Auto) 1 0-10 % Basophils (%) (Auto) 1 0-10 % Neutrophils # (Auto) 7.5 1.8-7.8 10^3/uL Lymphocytes # (Auto) 2.4 1.0-4.0 10^3/uL Monocytes # (Auto) 0.6 0.0-1.0 10^3/uL Eosinophils # (Auto) 0.1 0.0-0.3 10^3/uL Basophils # (Auto) 0.1 0.0-0.1 10^3/uL Immature Granulocyte # (Auto) 0.1 0.0-0.1 10^3/uL Sodium Level 141 135-145 MMOL/L Potassium Level 2.3 *L 3.6-5.0 MMOL/L Chloride Level 110 H 98-107 MMOL/L Carbon Dioxide Level 16 L 21-32 MMOL/L Anion Gap 15 H 5-14 MMOL/L Blood Urea Nitrogen 25 H 7-18 MG/DL Creatinine 1.17 0.60-1.30 MG/DL Estimat Glomerular Filtration Rate 60 BUN/Creatinine Ratio 21 Glucose Level 106 H 70-105 MG/DL Calcium Level 10.5 H 8.5-10.1 MG/DL Corrected Calcium 10.4 H 8.5-10.1 MG/DL Magnesium Level 2.2 1.6-2.4 MG/DL Total Bilirubin 0.4 0.1-1.0 MG/DL Aspartate Amino Transf (AST/SGOT) 12 5-34 U/L Alanine Aminotransferase (ALT/SGPT) 21 0-55 U/L Alkaline Phosphatase 222 H 40-136 U/L Total Protein 7.6 6.4-8.2 GM/DL Albumin 4.1 3.2-4.5 GM/DL Micro Results Microbiology 11/29/22 Urine Culture - Final, Complete See Comments My Orders Orders - DAVID RENDON Cbc With Automated Diff (11/29/22 19:13) Comprehensive Metabolic Panel (11/29/22 19:13) Magnesium (11/29/22 19:13) Urinalysis (11/29/22 19:13) Urine Culture (11/29/22 19:30) Ekg Tracing (11/29/22 21:10) Ceftriaxone Pre-Mix (Rocephin Pre-Mix) (11/29/22 21:15) Potassium Cl 10meq/50ml Ivpb (Kcl 10 Meq (11/29/22 21:45) Potassium Chloride (Tablet) (K Dur Table (11/29/22 21:45) Ns Iv 500 Ml (Sodium Chloride 0.9%) (11/29/22 22:15) Medications Given in ED Vital Signs/I&O 11/29/22 11/29/22 11/29/22 18:50 19:00 23:12 Temp 36.5 36.5 Pulse 105 84 Resp 10 16 B/P (MAP) 175/111 (132) 152/106 Pulse Ox 98 100 O2 Delivery Room Air Room Air Room Air Capillary Refill : Less Than 3 Seconds Blood Pressure Mean: 132 Departure Communication (PCP) Reviewed previous ER visits, H&P, lab testing. Differential diagnosis of electrolyte abnormality, UTI. Reviewed previous ER visits, H&P, admission H&P. Patient was admitted in September for hypokalemia. She had associated hypochloremia acidosis. IV fluid was stopped at the time. Associated acute kidney injury. Currently on oral potassium 120 mill equivalent and oral magnesium. She reports a increase in her spironolactone. Following field sales manager with recent lab work this past week. She became symptomatic this evening with short of breath, heart palpitations, fatigue, weakness, muscle pains. Concerning for low potassium. Vital signs stable. EKG showed sinus rhythm with nonspecific ST and T wave abnormality. Chronic findings from her previous EKG on October 06. No acute changes. vital signs stable. CBC, CMP and magnesium with urinalysis. Recently diagnosed UTI currently on Keflex. Urinalysis positive for UTI. She Was given a dose of Rocephin. CBC 10.8. Chemistry showed potassium of 2.3, chloride 110, anion gap of 15, bicarb of 16. This appears chronic from her last visit in [facility]. Concerning for hypochloremia metabolic acidosis. potential from vomiting. Alk phos 222. She has no current abdominal tenderness. No chest pain or short of breath currently. Concerning for the low potassium. Patient was given IV 10 ml equivalent of IV potassium. Magnesium 2.2. She was given additional oral 40 ml equivalent of potassium. Patient was discussed with Dr. Salomon hospitalist who agreed to accept patient under observation with IV potassium and potassium protocol. Impression Primary Impression: Hypokalemia Additional Impression: Hyperchloremic metabolic acidosis Disposition: ADMITTED INPATIENT Condition: Stable Admissions Decision to Admit Reason: Admit from ER (General) Decision to Admit/Date: November 29, 2022 Time/Decision to Admit Time: 21:45 Departure-Patient Inst. Referrals: SHALA CARRERA MD (PCP/Family) Primary Care Physician DAVID RENDON November 29, 2022 19:17
[2022-11-29 19:56] LABS: BASOPHILS # (AUTO) 0.1 10^3/uL (0.0-0.1); BASOPHILS % (AUTO) 1 % (0-10); EOSINOPHILS # (AUTO) 0.1 10^3/uL (0.0-0.3); EOSINOPHILS % (AUTO) 1 % (0-10); HEMATOCRIT 45 % (35-52); LYMPHOCYTES # (AUTO) 2.4 10^3/uL (1.0-4.0); LYMPHOCYTES % (AUTO) 22 % (12-44); MEAN CORPUSCULAR HEMOGLOBIN 33 pg (25-34); MEAN CORPUSCULAR HGB CONC 36 g/dL (32-36); MEAN CORPUSCULAR VOLUME 92 fL (80-99); MEAN PLATELET VOLUME 9.5 fL (9.0-12.2); MONOCYTES # (AUTO) 0.6 10^3/uL (0.0-1.0); MONOCYTES % (AUTO) 6 % (0-12); NEUTROPHILS # (AUTO) 7.5 10^3/uL (1.8-7.8); NEUTROPHILS % (AUTO) 70 % (42-75); PLATELET COUNT 458 10^3/uL (130-400); WHITE BLOOD COUNT 10.8 10^3/uL (4.3-11.0)
[2022-11-29 20:00] LABS: CLARITY,URINE CLEAR; COLOR,URINE AMBER; GLUCOSE, URINE (UA) 1+ (NEGATIVE); KETONES,URINE 1+ (NEGATIVE); LEUKOCYTE ESTERASE ,URINE TRACE (NEGATIVE); NITRITE,URINE POSITIVE (NEGATIVE); PH,URINE 6.5 (5-9); PROTEIN,URINE 3+ (NEGATIVE)
[2022-11-29 20:14] LABS: BACTERIA,URINE FEW /HPF; WBC,URINE 0-2 /HPF
[2022-11-29 20:16] LABS: BILIRUBIN,URINE 2+ (NEGATIVE); GRANULAR CASTS,URINE RARE /LPF
[2022-11-29] MEDS ORDERED: cefTRIAXone IV/IM 1,000 MG in NS (IVPB) 50 ML IV STA (20:17)
[2022-11-29 20:49] LABS: ALBUMIN 4.1 GM/DL (3.2-4.5)
[2022-11-29 20:51] LABS: CALCIUM 10.5 MG/DL (8.5-10.1)
[2022-11-29 20:52] LABS: TOTAL PROTEIN 7.6 GM/DL (6.4-8.2)
[2022-11-29 20:54] LABS: BILIRUBIN,TOTAL 0.4 MG/DL (0.1-1.0)
[2022-11-29 20:56] LABS: CREATININE SERUM 1.17 MG/DL (0.60-1.30)
[2022-11-29 20:58] LABS: MAGNESIUM 2.2 MG/DL (1.6-2.4)
[2022-11-29 21:04] LABS: POTASSIUM 2.3 MMOL/L (3.6-5.0)
[2022-11-29] MEDS ORDERED: cefTRIAXone 1,000 MG VIAL (for IV or IM) ONE (21:13)
[2022-11-29] MEDS ORDERED: cefTRIAXone PRE-MIX 50 ML IV ONE (21:15)
[2022-11-29] MEDS ORDERED: KCL 20 MEQ TAB (K-DUR) PO ONE (21:45)
[2022-11-29] MEDS ORDERED: POTASSIUM CL 10MEQ/50ML IVPB 50 ML IV ONE (21:45)
[2022-11-29] MEDS ORDERED: NS IV 500 ML 500 ML IV SCH (22:15)
[2022-11-30] VITALS (7 sets, daily range): BP systolic 129–179; BP diastolic 74–90
[2022-11-30] MEDS ORDERED: oxyCODONE/APAP 10/325MG (PERCOCET 10) TABLET PO PRN (00:15)
[2022-11-30] MEDS: ZOLPIDEM 5 MG (AMBIEN) TAB PO PRN ×2 (00:38→21:43)
[2022-11-30 05:26] LABS: CALCIUM 9.1 MG/DL (8.5-10.1); CREATININE SERUM 1.2 MG/DL (0.60-1.30); MAGNESIUM 2.1 MG/DL (1.6-2.4); PHOSPHORUS 1.9 MG/DL (2.3-4.7)
[2022-11-30 05:37] LABS: POTASSIUM 2.5 MMOL/L (3.6-5.0)
[2022-11-30] MEDS ORDERED: KCL 20 MEQ TAB (K-DUR) PO SCH (06:00)
[2022-11-30] MEDS: POTASSIUM BICARB 20 MEQ (EFFER-K) TABLET PO SCH (06:05)
[2022-11-30] MEDS: MAGNESIUM 1 GM/100 ML IVPB 100 ML IV SCH (06:05)
[2022-11-30] MEDS: POTASSIUM CL 10MEQ/50ML IVPB 50 ML IV SCH ×5 (06:05→16:19)
[2022-11-30] MEDS ORDERED: KCL 20 MEQ TAB (K-DUR) PO ONE ×3 (06:15→20:15)
[2022-11-30] MEDS ORDERED: POTASSIUM PHOSPHATE INJ 15 MM in NS (IVPB) 250 ML IV ONE (10:15)
[2022-11-30] MEDS: ENALAPRIL 10 MG (VASOTEC) TAB PO SCH (10:15)
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
[2022-11-30] MEDS: oxyCODONE/APAP 10/325MG (PERCOCET 10) TABLET PO PRN (15:18)
[2022-11-30 19:18] LABS: CREATININE SERUM 0.91 MG/DL (0.60-1.30)
[2022-11-30] MEDS ORDERED: cefTRIAXone IV/IM 1,000 MG in NS (IVPB) 50 ML IV SCH (21:00)
[2022-11-30] MEDS ORDERED: KCL 10 MEQ TAB (MICRO K) PO ONE (21:45)
[2022-11-30] MEDS ORDERED: ZOLPIDEM 5 MG (AMBIEN) TAB PO ONE (23:00)
[2022-11-30] MEDS ORDERED: NS IV 500 ML 500 ML IV PRN (23:45)
[2022-12-01 03:50] VITALS: BP 124/80
[2022-12-01 04:53] LABS: CALCIUM 8.6 MG/DL (8.5-10.1); CREATININE SERUM 0.81 MG/DL (0.60-1.30); MAGNESIUM 1.8 MG/DL (1.6-2.4); PHOSPHORUS 3.4 MG/DL (2.3-4.7); POTASSIUM 2.9 MMOL/L (3.6-5.0)
[2022-12-01] MEDS: POTASSIUM CL 10MEQ/50ML IVPB 50 ML IV SCH (05:18)
[2022-12-01] MEDS: POTASSIUM BICARB 20 MEQ (EFFER-K) TABLET PO SCH (05:18)
[2022-12-01] MEDS: MAGNESIUM 1 GM/100 ML IVPB 100 ML IV SCH ×3 (05:18→06:43)
[2022-12-01] MEDS: KCL 10 MEQ TAB (MICRO K) PO SCH ×2 (05:50→08:24)
[2022-12-01] MEDS ORDERED: KCL 10 MEQ TAB (MICRO K) PO SCH (06:00)
[2022-12-01] MEDS: oxyCODONE/APAP 10/325MG (PERCOCET 10) TABLET PO PRN (08:24)
[2022-12-01] MEDS: ENALAPRIL 10 MG (VASOTEC) TAB PO SCH (08:24)
[2022-12-01 08:43] VITALS: BP 134/75
[2022-12-01] MEDS ORDERED: SPIRONOLACTONE 100 MG (ALDACTONE) TABLET PO SCH (09:00)
[2022-12-01] MEDS ORDERED: CYCL10TA25 PO (11:06)
[2022-12-01] MEDS ORDERED: SPIR100T4 PO (11:06)
[2022-12-01] MEDS ORDERED: POTA-51 PO (11:06)
[2022-12-01] MEDS ORDERED: CEPH500C PO (11:06)
[2022-12-01] MEDS ORDERED: OXYC-556 PO (11:06)
[2022-12-01] MEDS ORDERED: MAGN250C PO (11:11)
[2022-12-01 11:25] VITALS: BP 131/78
[2022-12-01] MEDS ORDERED: POTASSIUM CL 10MEQ/50ML IVPB 50 ML IV ONE (12:30)
--- NOTE | 2022-12-01 17:19 | Discharge Summary ---
Discharge Summary Hospital Course Problems/Dx: (1) Hypokalemia Status: Acute (2) Hyperchloremic metabolic acidosis Status: Acute (3) UTI (urinary tract infection) Status: Acute (4) Hypertension Status: Acute Hospital Course Date of Admission: November 29, 2022 at 23:19 Admission Diagnosis : Hypokalemia Family Physician/Provider: Shala Carrera MD Date of Discharge: 12/01/22 Discharge Diagnosis: Hypokalemia Hospital Course: Avelina Saldivar is a 42 year old female whow as admitted with hypokalemia. She has been having issues with hypokalemia for quite a while. She has been taking supplemental potassium and magnesium daily. She has been referred to nephrology for evaluation which began a few days ago. She was treated with IV and oral potassium and magnesium and both improved. She was taking antibiotics as an outpatient for UTI. She completed her course while inpatient. She was discharged home in stable condition. She should follow up with her PCP and nephrology as scheduled. Labs and Pending Lab Test: Laboratory Tests 11/30/22 18:48: Sodium Level 141, Potassium Level 3.0L, Chloride Level 115H, Carbon Dioxide Level 14L, Anion Gap 12, Blood Urea Nitrogen 19H, Creatinine 0.91, Estimat Glomerular Filtration Rate 81, BUN/Creatinine Ratio 21, Glucose Level 110H, Calcium Level 9.0 12/01/22 03:55: Sodium Level 141, Potassium Level 2.9L, Chloride Level 119H, Carbon Dioxide Level 15L, Anion Gap 7, Blood Urea Nitrogen 17, Creatinine 0.81, Estimat Glomerular Filtration Rate 93, BUN/Creatinine Ratio 21, Glucose Level 116H, Calcium Level 8.6, Phosphorus Level 3.4, Magnesium Level 1.8 Microbiology 11/29/22 Urine Culture - Final, Complete See Comments Home Meds Active Reported Magnesium (Magnesium Citrate and Oxide) 250 Mg Capsule 250 Mg PO BID Cyclobenzaprine HCl 10 Mg Tablet 10-20 Mg PO BID PRN Oxycodone-Acetaminophen 10-325 (Oxycodone HCl/Acetaminophen) 10 Mg-325 Mg Tablet 1-2 Ea PO Q6H PRN Potassium Chloride 20 Meq Tablet.er 40 Meq PO TID TAKES 2 (20MEQ) TABS Spironolactone 100 Mg Tablet 100 Mg PO BID Celecoxib 200 Mg Capsule 200 Mg PO HS Zolpidem Tartrate 5 Mg Tablet 10 Mg PO HS TAKES 2 (5MG) TABS Prazosin HCl 1 Mg Capsule 3 Mg PO HS TAKES 3 (1MG) CAPS Enalapril Maleate 20 Mg Tablet 40 Mg PO DAILY TAKES 2 (20MG) TABS LAST FILLED 10-03-2022 #60/30 DAY SUPPLY Assessment/Pt Instructions See instructions Discharge Planning: <30 minutes discharge planning Discharge Instructions Discharge Diet: No Restrictions Activity as Tolerated: Yes Discharge Physical Examination Vital Signs Vital Signs Date Time Temp Pulse Resp B/P (MAP) Pulse Ox O2 Delivery O2 Flow Rate FiO2 12/01/22 13:09 89 12/01/22 11:25 36.4 19 131/78 (95) 98 Room Air General Appearance: No Apparent Distress, WD/WN Respiratory: Lungs Clear, No Respiratory Distress Cardiovascular: Regular Rate, Rhythm, No Murmur Gastrointestinal: Normal Bowel Sounds, Soft Extremity: Normal Inspection, No Pedal Edema Skin: Normal Color, Warm/Dry Neurologic/Psychiatric: Alert, Normal Mood/Affect Allergies: Coded Allergies: Sulfa (Sulfonamide Antibiotics) (Unverified Allergy, Severe, VOMITING, 08/12/14) Uncoded Allergies: TB SERUM (Allergy, Unknown, REDNESS, 08/12/14) Copy Copies To 1: SHALA CARRERA MD Discharge Summary Date of Admission November 29, 2022 at 23:19 Date of Discharge December 01, 2022 at 13:30 Discharge Date: December 01, 2022 Discharge Time: 13:30 Admission Diagnosis Refractory hypokalemia Discharge Diagnosis (1) Hypokalemia Status: Acute (2) Hyperchloremic metabolic acidosis Status: Acute (3) UTI (urinary tract infection) Status: Acute (4) Hypertension Status: Acute VALENTINA PEREZ MD December 01, 2022 17:19
== END 2022-12-01 13:30 | disposition home or self-care (01) ==
LOC: EDUNIT# 17:58 → ER 18:00 → 4TH 23:19
PROVIDERS: ADMIT Family Medicine; ATTEND Internal Medicine
DX: E87.6 Hypokalemia (principal); N39.0 Urinary tract infection, site not specified; I10 Essential (primary) hypertension; E87.20 Acidosis, unspecified; F17.290 Nicotine dependence, other tobacco product, uncomplicated; E83.39 Other disorders of phosphorus metabolism; G89.29 Other chronic pain; G47.00 Insomnia, unspecified; Z28.310 Unvaccinated for COVID-19
CPT/HCPCS: 80048 ×2; 80053; 81000; 83735 ×3; 84100 ×2; 85025; 87088; 93005; 96366 ×2; 99284; G0378; 36415

== ENCOUNTER → 2023-02-25 | Outpatient (CLI) | payer BC ==
[~2023-02-25] MED LIST changes: +CEPH500C PO; +CYCL10TA25 PO; +MAGN250C PO; +OXYC-556 PO; +POTA-330 PO; +SPIR100T4 PO
--- NOTE | 2023-02-25 14:55 | Diagnostic Imaging Report ---
PROCEDURE: CT urinary tract, rule out kidney stone. TECHNIQUE: Multiple contiguous axial images were obtained through the abdomen and pelvis without the use of intravenous contrast. Auto Exposure Controls were utilized during the CT exam to meet ALARA standards for radiation dose reduction. INDICATION: Right flank pain and hematuria. Compared with study of 12/02/2021. FINDINGS: Some stranding and infiltration of the bilateral greater right retroperitoneal fat and thickening of the lateral conal fascia. There is a stone in the right proximal ureter at or just beyond the ureteropelvic junction with no upstream hydro. Calculus measures 3.6 x 2.2 mm. There is a left UVJ stone that measures 5 mm x 4 mm also without hydronephrosis. There are multiple additional intrarenal calculi bilaterally. No urinoma. No subcapsular fluid collection. Urinary bladder nearly empty limiting evaluation of the UVJs and that structure. There are pelvic calcifications not clearly changed from the prior and believed phleboliths. There is trace pelvic free fluid nonloculated. There is no bowel obstruction. Gallbladder absent. The liver and bile ducts unremarkable. Spleen negative. There is no adrenal mass. No free air. No findings of hemorrhage. IMPRESSION: 1. Bilateral nephrolithiasis, bilateral stones at the level of the ureteropelvic junctions, dimensions above, without hydronephrosis. Empty bladder limits evaluation of the UVJs. There are chronic pelvic phleboliths not clearly changed from prior. 2. There is considerable stranding of the bilateral retroperitoneal fat greater right. The distribution of this edema raises the question of changes from pancreatitis, correlate with relevant enzymes with no acute fluid collection. No bowel or biliary tract obstruction. No free air. No fluid collection with trace pelvic ascites. Dictated by: Dictated on workstation # [id number]
== END ==
LOC: RAD 14:12
PROVIDERS: ATTEND Nurse Practitioner Family
DX: N20.2 Calculus of kidney with calculus of ureter (principal); R31.9 Hematuria, unspecified
CPT/HCPCS: 74176

== ENCOUNTER 2023-03-01 16:55 | Emergency (ER) | payer BC ==
[~2023-03-01] VITALS: Ht 162 cm; Wt 68.0 kg
[2023-03-01] MEDS ORDERED: fentaNYL INJECTION 100 MCG/2 ML VIAL IVP ONE (17:15)
[2023-03-01] MEDS ORDERED: LACTATED RINGERS 1,000 ML IV SCH (17:15)
--- NOTE | 2023-03-01 17:19 | ED General ---
General Chief Complaint: General Problems/Pain Stated Complaint: POSSIBLE LOW POTASSIUM Nursing Triage Note: pt states she has been feeling bad since last thursday was seen at her pcp and found to have kidney stones and low potassium and is having worsening in her pain Source of Information: Patient Exam Limitations: No Limitations (PERI STAFFORD DO) History of Present Illness Date Seen by Provider: Mar 01, 2023 Time Seen by Provider: 17:02 Initial Comments 43-year-old female presents the emergency department today for generally feeling unwell and bilateral flank pains. She started generally feeling unwell with nausea vomiting and pain on Thursday. She thought she may have a kidney stone, initially symptoms started on the right there bilateral. She has had nausea and vomiting from the pain. She has had history of kidney stones multiple times in the past and hopes that it might get better on its own. When it did not she saw her doctor on who ordered a CT scan and labs. Notably she has a history of significant hypokalemia secondary to renal tubular acidosis. She was admitted to our hospital in November after she was found to have a potassium of 2.3. She has been followed with nephrology at [place]. Currently she denies any fevers or chills. She was told by her primary care doctor that she had some "pancreatic stones." Record review of the radiology read of her imaging shows that she has stranding consistent with possible pancreatitis but no pancreatic stones. She has a left-sided stone at the level of the ureteropelvic junction and a right-sided stone at the level of the ureterovesical junction. All other systems reviewed and negative except documented per HPI. Voice recognition software was used to help create this chart (PERI STAFFORD DO) Allergies and Home Medications Allergies Coded Allergies: Sulfa (Sulfonamide Antibiotics) (Unverified Allergy, Severe, VOMITING, 08/12/14) Uncoded Allergies: TB SERUM (Allergy, Unknown, REDNESS, 08/12/14) Patient Home Medication List Home Medication List Reviewed: Yes (PERI STAFFORD DO) Celecoxib (Celecoxib) 200 Mg Capsule, 200 MG PO HS, (Reported) Entered as Reported by: GERRY ARREOLA on 10/06/22 1539 Cyclobenzaprine HCl (Cyclobenzaprine HCl) 10 Mg Tablet, 10-20 MG PO BID PRN for MUSCLE SPASMS, (Reported) Entered as Reported by: GERRY ARREOLA on 12/01/22 1106 Enalapril Maleate (Enalapril Maleate) 20 Mg Tablet, 40 MG PO DAILY, (Reported) Entered as Reported by: GERRY ARREOLA on 10/06/22 1539 Magnesium Citrate and Oxide (Magnesium) 250 Mg Capsule, 250 MG PO BID, (Reported) Entered as Reported by: GERRY ARREOLA on 12/01/22 1111 Oxycodone HCl/Acetaminophen (Oxycodone-Acetaminophen 10-325) 10 Mg-325 Mg Tablet, 1-2 EA PO Q6H PRN for PAIN-MODERATE (5-7), (Reported) Entered as Reported by: GERRY ARREOLA on 12/01/22 110 Potassium Chloride (Potassium Chloride) 20 Meq Tablet.er, 40 MEQ PO TID, (Reported) Entered as Reported by: GERRY ARREOLA on 12/01/22 110 Prazosin HCl (Prazosin HCl) 1 Mg Capsule, 3 MG PO HS, (Reported) Entered as Reported by: GERRY ARREOLA on 10/06/22 153 Spironolactone (Spironolactone) 100 Mg Tablet, 100 MG PO BID, (Reported) Entered as Reported by: GERRY ARREOLA on 12/01/22 110 Zolpidem Tartrate (Zolpidem Tartrate) 5 Mg Tablet, 10 MG PO HS, (Reported) Entered as Reported by: GERRY ARREOLA on 10/06/22 1539 Review of Systems Review of Systems Constitutional: see HPI (PERI STAFFORD DO) Past Skbmera-Nqlzbv-Tivqqy Hx Patient Social History Tobacco Use?: No Substance use?: No Alcohol Use?: No (PERI STAFFORD DO) Immunizations Up To Date Tetanus Booster (TDap): Unknown (PERI STAFFORD DO) Seasonal Allergies Seasonal Allergies: No (PERI STAFFORD DO) Past Medical History Surgery/Hospitalization HX: HTN, HYSTERECTOMY, ANDRADE, KIDNEY STONES Gallbladder, Hysterectomy Respiratory: No Currently Using CPAP: No Currently Using BIPAP: No Cardiac: Yes (CARDIOMYOPATHY WITH 2ND , LAST ECHO 58%, SEE DR HUBBARD) Cardiomyopathy, High Cholesterol, Hypertension Neurological: Yes (STOKE WITH 1ST 18 YEARS AGO) Stroke Reproductive Disorders: Yes (CPP, ) Female Reproductive Disorders: Endometriosis, 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 History: Hysterectomy Genitourinary: Yes Kidney Stones Gastrointestinal: No Musculoskeletal: No Endocrine: No HEENT: No Cancer: No Psychosocial: Yes Depression Integumentary: No Blood Disorders: No (PERI STAFFORD DO) Family Medical History Cardiovascular disease 19 FATHER 19 MOTHER Diabetes mellitus 19 FATHER Hypercholesterolemia 19 FATHER Hypertension 19 FATHER G8 BROTHER Kidney disease 19 FATHER Myocardial infarction 19 FATHER Thyroid disease 19 MOTHER No Family History of: AIDS Abdominal aortic aneurysm Alcoholism Alzheimer's disease Arthritis Asthma Completed stroke Dementia Drug abuse Glaucoma Parkinson's disease Prostate cancer Psychosocial problem Respiratory disorder Seizure disorder Severe allergy Tuberculosis Physical Exam Vital Signs Vital Signs - First Documented 03/01/23 17:03 Temp 36.6 Pulse 102 Resp 18 B/P (MAP) 188/127 (147) Pulse Ox 100 (CORTEZMARYLU K DO) Vital Signs Capillary Refill : (PERI STAFFORD DO) Height, Weight, BMI Height: 5'4.00" Weight: 188lbs. oz. 85.893713sw; 25.00 BMI Method:Stated General Appearance: No Apparent Distress, WD/WN Eyes: Bilateral Eye Normal Inspection, Bilateral Eye PERRL, Bilateral Eye EOMI HEENT: Normal ENT Inspection, Pharynx Normal Neck: Full Range of Motion, Normal Inspection, Non Tender, Supple Respiratory: Chest Non Tender, Lungs Clear, Normal Breath Sounds, No Accessory Muscle Use, No Respiratory Distress Cardiovascular: Regular Rate, Rhythm, No Edema, No Murmur, Normal Peripheral Pulses Gastrointestinal: Normal Bowel Sounds, Soft, Tenderness (Tenderness palpation the epigastric region with voluntary guarding. No rebound tenderness. No mass organomegaly. Bilateral CVA tenderness.) Back: CVA Tenderness (L), CVA Tenderness (R) Extremity: Normal Capillary Refill, Normal Inspection, Normal Range of Motion, Non Tender, No Calf Tenderness Neurologic/Psychiatric: Alert, Oriented x3, Normal Mood/Affect Skin: Normal Color, Warm/Dry (PERI STAFFORD DO) Focused Exam Sepsis Stage: Ruled Out Reason for ruling out sepsis: DOES NOT MEET CRITERIA Possible Source: Genitouriary Lactate Level 03/01/23 18:46: Lactic Acid Level 1.45 (CORTEZ,MARYLU K DO) Time of Focused Exam: 19:00 Respiratory: Normal Breath Sounds, No Accessory Muscle Use, No Respiratory Distress Cardiovascular: Regular Rate, Rhythm, No Murmur Capillary Refill: Less Than 3 Seconds Skin: normal color, warm/dry Lactic Acid Level Laboratory Tests Test 03/01/23 18:46 Lactic Acid Level 1.45 MMOL/L (0.50-2.00) (CORTEZMARYLU Porter ) Within 3hrs of presentation: Admin fluids, Admin ABX, Blood cultures prior to ABX's, Focus exam, Lactate level (CORTEZMARYLU Charlotte ASHBY) Progress/Results/Core Measures Suspected Sepsis SIRS Temperature: Pulse: 102 Respiratory Rate: 18 Blood Pressure 188 /127 Mean: 147 (PERI STAFFORD ) Results/Orders Lab Results Laboratory Tests Test 03/01/23 17:13 03/01/23 17:36 03/01/23 18:03 03/01/23 18:46 Range/Units White Blood Count 17.6 H 4.3-11.0 10^3/uL Red Blood Count 4.58 3.80-5.11 10^6/uL Hemoglobin 15.0 11.5-16.0 g/dL Hematocrit 42 35-52 % Mean Corpuscular Volume 91 80-99 fL Mean Corpuscular Hemoglobin 33 25-34 pg Mean Corpuscular Hemoglobin Concent 36 32-36 g/dL Red Cell Distribution Width 14.9 H 10.0-14.5 % Platelet Count 540 H 130-400 10^3/uL Mean Platelet Volume 9.2 9.0-12.2 fL Immature Granulocyte % (Auto) 1 % Neutrophils (%) (Auto) 86 H 42-75 % Lymphocytes (%) (Auto) 8 L 12-44 % Monocytes (%) (Auto) 5 0-12 % Eosinophils (%) (Auto) 0 0-10 % Basophils (%) (Auto) 0 0-10 % Neutrophils # (Auto) 15.0 H 1.8-7.8 10^3/uL Lymphocytes # (Auto) 1.4 1.0-4.0 10^3/uL Monocytes # (Auto) 0.9 0.0-1.0 10^3/uL Eosinophils # (Auto) 0.1 0.0-0.3 10^3/uL Basophils # (Auto) 0.0 0.0-0.1 10^3/uL Immature Granulocyte # (Auto) 0.1 0.0-0.1 10^3/uL Neutrophils % (Manual) 82 % Lymphocytes % (Manual) 8 % Monocytes % (Manual) 8 % Eosinophils % (Manual) 2 % Basophils % (Manual) 0 % Band Neutrophils 0 % Blood Morphology Comment NORMAL Sodium Level 139 135-145 MMOL/L Potassium Level 1.8 *L 3.6-5.0 MMOL/L Chloride Level 110 H 98-107 MMOL/L Carbon Dioxide Level 14 L 21-32 MMOL/L Anion Gap 15 H 5-14 MMOL/L Blood Urea Nitrogen 12 7-18 MG/DL Creatinine 0.91 0.60-1.30 MG/DL Estimat Glomerular Filtration Rate 80 BUN/Creatinine Ratio 13 Glucose Level 162 H 70-105 MG/DL Calcium Level 10.3 H 8.5-10.1 MG/DL Corrected Calcium 10.5 H 8.5-10.1 MG/DL Magnesium Level 2.3 1.6-2.4 MG/DL Total Bilirubin 0.4 0.1-1.0 MG/DL Aspartate Amino Transf (AST/SGOT) 9 5-34 U/L Alanine Aminotransferase (ALT/SGPT) 14 0-55 U/L Alkaline Phosphatase 236 H 40-136 U/L Total Protein 7.7 6.4-8.2 GM/DL Albumin 3.7 3.2-4.5 GM/DL Lipase 167 H 8-78 U/L Urine Color YELLOW Urine Clarity CLEAR Urine pH 6.5 5-9 Urine Specific [place] 1.015 L 1.016-1.022 Urine Protein 2+ H NEGATIVE Urine Glucose (UA) NEGATIVE NEGATIVE Urine Ketones TRACE H NEGATIVE Urine Nitrite NEGATIVE NEGATIVE Urine Bilirubin NEGATIVE NEGATIVE Urine Urobilinogen 0.2 < = 1.0 MG/DL Urine Leukocyte Esterase NEGATIVE NEGATIVE Urine RBC (Auto) TRACE H NEGATIVE Urine RBC 5-10 H /HPF Urine WBC 0-2 /HPF Urine Squamous Epithelial Cells 5-10 /HPF Urine Crystals NONE /LPF Urine Bacteria NEGATIVE /HPF Urine Casts NONE /LPF Urine Mucus NEGATIVE /LPF Urine Culture Indicated CULTURE PENDING Urine Opiates Screen NEGATIVE NEGATIVE Urine Oxycodone Screen NEGATIVE NEGATIVE Urine Methadone Screen NEGATIVE NEGATIVE Urine Propoxyphene Screen NEGATIVE NEGATIVE Urine Barbiturates Screen NEGATIVE NEGATIVE Ur Tricyclic Antidepressants Screen NEGATIVE NEGATIVE Urine Phencyclidine Screen NEGATIVE NEGATIVE Urine Amphetamines Screen NEGATIVE NEGATIVE Urine Methamphetamines Screen NEGATIVE NEGATIVE Urine Benzodiazepines Screen NEGATIVE NEGATIVE Urine Cocaine Screen NEGATIVE NEGATIVE Urine Cannabinoids Screen NEGATIVE NEGATIVE Amylase Level 107 25-125 U/L Lactic Acid Level 1.45 0.50-2.00 MMOL/L Test 03/01/23 20:53 03/02/23 04:36 Range/Units Sodium Level 136 140 135-145 MMOL/L Potassium Level 1.9 *L 2.2 *L 3.6-5.0 MMOL/L Chloride Level 111 H 117 H 98-107 MMOL/L Carbon Dioxide Level 15 L 14 L 21-32 MMOL/L Anion Gap 10 9 5-14 MMOL/L Blood Urea Nitrogen 11 10 7-18 MG/DL Creatinine 0.83 0.72 0.60-1.30 MG/DL Estimat Glomerular Filtration Rate 90 106 BUN/Creatinine Ratio 13 14 Glucose Level 302 H 126 H 70-105 MG/DL Calcium Level 9.0 8.8 8.5-10.1 MG/DL White Blood Count 12.1 H 4.3-11.0 10^3/uL Red Blood Count 3.93 3.80-5.11 10^6/uL Hemoglobin 12.9 11.5-16.0 g/dL Hematocrit 36 35-52 % Mean Corpuscular Volume 91 80-99 fL Mean Corpuscular Hemoglobin 33 25-34 pg Mean Corpuscular Hemoglobin Concent 36 32-36 g/dL Red Cell Distribution Width 14.9 H 10.0-14.5 % Platelet Count 421 H 130-400 10^3/uL Mean Platelet Volume 9.2 9.0-12.2 fL Immature Granulocyte % (Auto) 1 % Neutrophils (%) (Auto) 76 H 42-75 % Lymphocytes (%) (Auto) 13 12-44 % Monocytes (%) (Auto) 8 0-12 % Eosinophils (%) (Auto) 2 0-10 % Basophils (%) (Auto) 1 0-10 % Neutrophils # (Auto) 9.1 H 1.8-7.8 10^3/uL Lymphocytes # (Auto) 1.6 1.0-4.0 10^3/uL Monocytes # (Auto) 1.0 0.0-1.0 10^3/uL Eosinophils # (Auto) 0.2 0.0-0.3 10^3/uL Basophils # (Auto) 0.1 0.0-0.1 10^3/uL Immature Granulocyte # (Auto) 0.1 0.0-0.1 10^3/uL Corrected Calcium 9.7 8.5-10.1 MG/DL Total Bilirubin 0.3 0.1-1.0 MG/DL Aspartate Amino Transf (AST/SGOT) 27 5-34 U/L Alanine Aminotransferase (ALT/SGPT) 15 0-55 U/L Alkaline Phosphatase 236 H 40-136 U/L Total Protein 5.8 L 6.4-8.2 GM/DL Albumin 2.9 L 3.2-4.5 GM/DL (CORTEZ,MARYLU K DO) My Orders Orders - CORTEZMARYLU K DO Lactic Acid Analyzer (03/01/23 17:51) Blood Culture (03/01/23 17:51) Urine Culture (03/01/23 17:51) Vital Signs Adult Sepsis Patie Q15M (03/01/23 17:51) Remove Rings In Anticipation O (03/01/23 17:51) Ketorolac Injection (Toradol Injection) (03/01/23 17:51) Ondansetron Injection (Zofran Injectio (03/01/23 18:00) Cefepime Injection (Cefepime Injection) (03/01/23 18:00) D5 1/2ns + Kcl 40 Meq/L 1000ml (Dextrose (03/01/23 18:00) Amylase (03/01/23 18:00) Drug Screen Stat (Urine) (03/01/23 18:00) Ct Abd/Pelvis Wo(Kidney Stone) (03/01/23 18:01) Abdomen/Kub 1view (03/01/23 18:01) Tamsulosin Capsule (Flomax Capsule) (03/01/23 19:15) Morphine Injection (Morphine Injection (03/01/23 19:15) Hydralazine Injection (Apresoline Inject (03/01/23 19:45) Clear Liquid (03/01/23 Dinner) Basic Metabolic Panel (03/01/23 20:49) D5 1/2ns + Kcl 40 Meq/L 1000ml (Dextrose (03/01/23 21:00) Potassium Cl 10meq/50ml Ivpb (Kcl 10 Meq (03/01/23 21:30) 1/2 Ns Iv Solution 1000 Ml (1/2 Ns Iv So (03/01/23 21:30) General/Regular (03/01/23 Dinner) Morphine Injection (Morphine Injection (03/01/23 22:15) Cefepime Injection (Cefepime Injection) (03/02/23 01:00) Morphine Injection (Morphine Injection (03/02/23 01:15) Cbc With Automated Diff (03/02/23 05:00) Comprehensive Metabolic Panel (03/02/23 05:00) Ketorolac Injection (Toradol Injection) (03/02/23 04:00) Morphine Injection (Morphine Injection (03/02/23 04:00) (MARYLU TORO DO) Medications Given in ED Current Medications Medications Dose Ordered Sig/Alice Route Start Time Stop Time Status Last Admin Dose Admin Hydralazine HCl 10 mg ONCE ONCE IV 03/01/23 19:45 03/01/23 19:46 DC 03/01/23 19:47 10 MG Ketorolac Tromethamine 30 mg ONCE ONCE IVP 03/02/23 04:00 03/02/23 04:01 DC 03/02/23 04:05 30 MG Morphine Sulfate 4 mg ONCE ONCE IVP 03/01/23 19:15 03/01/23 19:16 DC 03/01/23 19:18 4 MG Morphine Sulfate 4 mg ONCE ONCE IVP 03/01/23 22:15 03/01/23 22:16 DC 03/01/23 22:13 4 MG Morphine Sulfate 4 mg ONCE ONCE IVP 03/02/23 01:15 03/02/23 01:16 DC 03/02/23 01:22 4 MG Morphine Sulfate 4 mg ONCE ONCE IVP 03/02/23 04:00 03/02/23 04:01 DC 03/02/23 04:04 4 MG (MARYLU TORO DO) Vital Signs/I&O 03/01/23 17:03 Temp 36.6 Pulse 102 Resp 18 B/P (MAP) 188/127 (147) Pulse Ox 100 (MARYLU TORO DO) Vital Signs/I&O Capillary Refill : (PERI STAFFORD DO) Blood Pressure Mean: 147 Progress Note : Progress Note 1800--ASSUMED CARE FROM DR. RIVERA, ALL STUDIES PENDING. PT C/O CONTINUED PAIN AND NAUSEA. ADDITIONAL MEDICATIONS ORDERED. PT STATES SHE TAKES OXYCODONE 2 PILLS TWICE A DAY, INCLUDING THIS MORNING. SHE STATES SHE HAS NOT SEEN A UROLOGIST IN OVER A YEAR--USED TO SEE DR. LEWIS BEFORE HE RETIRED LAST YEAR SHE SEES DR. YATES, FUNDRAISING SPECIALIST IN [place]. SHE STATES SHE HAS LOST 70# SINCE SEPTEMBER DUE TO NO APPETITE "AND DEALING WITH ALL THIS" PT HAS RECEIVED FENTANYL PRIOR TO MY ARRIVAL PT WAS ALSO GIVEN: -IV FLUIDS CONTAINING POTASSIUM -TORADOL -ZOFRAN -CEFEPIME PER SEPSIS PROTOCOL DUE TO LEUKOCYTOSIS -FENTANYL -MORPHINE -HYDRALAZINE FOR PERSISTENT HTN. -FLOMAX FED CLEAR LIQUIDS WHICH SHE TOLERATED, THE REGULAR DIET, WHICH SHE TOLERATED WELL. LABS : -CBC WITH WBC 17.6, HGB 15.0, PLT 540,000 -CMP WITH NA 139, K 1.8, CL 110, CO2 12, ANION GAP 15, BUN 12, CR 0.9, GLU 162, CALCIUM 10.3, MG 2.3, LFT'S NORMAL, ALK PHOS 236 AMYLASE 107, LIPASE 167 REPEAT BNP AT 2053 POTASSIUM IS 1.9. ADDITIONAL IV POTASSIUM AND IV FLUIDS ORDERED. REPEAT LAB AT 0436 -CBC WITH WBC 12.1, HGB 12.9, PLT 421,000 -CMP WITH NA 140, K 2.2, CL 117, CO2 14, ANION GAP 9, BUN 10, CR 0.7, GLU 126. REST OF CHEMISTRY PANEL IS WITHOUT SIGNIFICANT CHANGE. PT STATES HER POTASSIUM USUALLY RUNS AROUND 2.5 0650--CARE TURNED OVER TO DR. CORNELIUS AT SHIFT CHANGE. BED ASSIGNMENT AT [facility] IS PENDING. (MARYLU TORO DO) Progress Note #1: Time: 06:55 Progress Note Care of this patient was assumed from Dr. TORO after shift change. Patient is awaiting bed assignment at [facility] in [place]. Case has been reviewed with Dr. TORO. Potassium is presently being replaced. Pain is being managed with morphine. We will check with [facility] soon if we do not hear about a bed assignment. Progress Note #2: Time: 08:19 Progress Note Nursing staff received update from [facility] in [place]. They are awaiting discharges for bed availability. I introduced myself to the patient and gave her an update. She voiced no needs at this time after being asked. Progress Note #3: Time: 12:03 Progress Note Repeat potassium improved to 2.5. Update was received from [facility]. They do think it is realistic that the patient will be transferred later today. They advised that patient may eat. I will order a diet for the patient and allow her to take her next potassium dose orally. (ИРИНА CORNLEIUS MD) Diagnostic Imaging Comments NAME: VENKATA CRAWFORD [facility] REC#: [id number] PT STATUS: REG CLI : 1980 PHYSICIAN: RAYNE ROSA APRN ADMIT DATE: 02/25/23/RAD Signed Date of Exam:02/25/23 CT ABD/PELVIS WO(KIDNEY STONE) PROCEDURE: CT urinary tract, rule out kidney stone. TECHNIQUE: Multiple contiguous axial images were obtained through the abdomen and pelvis without the use of intravenous contrast. Auto Exposure Controls were utilized during the CT exam to meet ALARA standards for radiation dose reduction. INDICATION: Right flank pain and hematuria. Compared with study of 12/02/2021. FINDINGS: Some stranding and infiltration of the bilateral greater right retroperitoneal fat and thickening of the lateral conal fascia. There is a stone in the right proximal ureter at or just beyond the ureteropelvic junction with no upstream hydro. Calculus measures 3.6 x 2.2 mm. There is a left UVJ stone that measures 5 mm x 4 mm also without hydronephrosis. There are multiple additional intrarenal calculi bilaterally. No urinoma. No subcapsular fluid collection. Urinary bladder nearly empty limiting evaluation of the UVJs and that structure. There are pelvic calcifications not clearly changed from the prior and believed phleboliths. There is trace pelvic free fluid nonloculated. There is no bowel obstruction. Gallbladder absent. The liver and bile ducts unremarkable. Spleen negative. There is no adrenal mass. No free air. No findings of hemorrhage. IMPRESSION: 1. Bilateral nephrolithiasis, bilateral stones at the level of the ureteropelvic junctions, dimensions above, without hydronephrosis. Empty bladder limits evaluation of the UVJs. There are chronic pelvic phleboliths not clearly changed from prior. 2. There is considerable stranding of the bilateral retroperitoneal fat greater right. The distribution of this edema raises the question of changes from pancreatitis, correlate with relevant enzymes with no acute fluid collection. No bowel or biliary tract obstruction. No free air. No fluid collection with trace pelvic ascites. Dictated by: Dictated on workstation # [id number] Dict: 02/25/23 1437 Trans: 02/25/23 1656 CVB [id number] Interpreted by: MANN CAMACHO Electronically signed by: MANN CAMACHO 02/25/23 9009 (PERI STAFFORD DO) Comments CT ABDOMEN/PELVIS--PER RADIOLOGIST REPORT AT 185 FINDINGS: Lung bases: The lung bases are clear. Solid organs: The liver is normal. The gallbladder is surgically absent. There is no biliary ductal dilation. There is mild peripancreatic inflammatory stranding. Spleen is normal. Adrenal glands are normal. There are bilateral nonobstructing renal calculi measuring up to 0.8 cm. No hydronephrosis. There is a 0.5 cm stone within the mid left ureter. Bowel: The stomach and small bowel are normal without obstruction. The colon is unremarkable. The appendix is normal. Peritoneum: There is no intraperitoneal free fluid or free air. No suspicious lymphadenopathy. Vasculature: Normal without aneurysm. Musculoskeletal: No suspicious osseous lesion or compression fracture. Pelvis: The uterus is surgically absent. No adnexal mass. The urinary bladder is normal. IMPRESSION: 1. A 0.5 cm stone within the mid left ureter without significant hydronephrosis. 2. Additional bilateral nonobstructing renal calculi measuring up to 0.8 cm. 3. Mild peripancreatic inflammatory stranding. No peripancreatic fluid collection. These findings could be seen with acute pancreatitis in the appropriate clinical setting. KUB--PER RADIOLOGIST REPORT AT 185 FINDINGS: There is a moderate amount of gas and stool throughout the colon. Nonobstructive bowel gas pattern. No radiopaque foreign body. Right upper quadrant cholecystectomy clips are present. The osseous structures are intact. IMPRESSION: Moderate stool burden without other acute abnormality in the abdomen. Reviewed: Reviewed by Me (MARYLU TORO DO) Departure Communication (Admissions) 1858--CALLED [facility] TRANSFER LINE. 1927--[facility] CALLED BACK. SPOKE WITH DR. FINLEY, HOSPITALIST, ACCEPTS PT FOR ADMIT. THEY WILL NOT HAVE A BED AVAILABLE UNTIL MORNING, BUT WILL BE ABLE TO ACCEPT THE PT AT THAT TIME. THEY WILL CALL BACK WITH UPDATES. 3062--[facility] CALLED FOR UPDATE. STILL PLANNING ON BEING ABLE TO ACCEPT PT LATER THIS MORNING. (MARYLU TORO DO) Impression Primary Impression: Kidney stones Additional Impressions: SEVERE HYPOKALEMIA Hx of renal tubular acidosis Leukocytosis Qualified Codes: D72.829 - Elevated white blood cell count, unspecified Disposition: 02 XFER SHT-TRM HOSP Condition: Stable Transfer Transfer Reason: Exceeds level of care (NEED FOR UROLOGY AND NEPHROLOGY UNAVAILABLE HERE) Transfer Facility: [place], [place] (MARYLU TORO DO) Transfer Time: 13:10 (ИРИНА CORNELIUS MD) Departure-Patient Inst. Referrals: SHALA CARRERA MD (PCP/Family) Primary Care Physician PERI STAFFORD DO Mar 01, 2023 17:19 MARYLU TORO DO Mar 01, 2023 18:00 ИРИНА CORNELIUS MD Mar 02, 2023 06:58
[2023-03-01 17:21] LABS: BASOPHILS % (AUTO) 0 % (0-10); EOSINOPHILS # (AUTO) 0.1 10^3/uL (0.0-0.3); EOSINOPHILS % (AUTO) 0 % (0-10); HEMATOCRIT 42 % (35-52); LYMPHOCYTES # (AUTO) 1.4 10^3/uL (1.0-4.0); LYMPHOCYTES % (AUTO) 8 % (12-44); MEAN CORPUSCULAR HEMOGLOBIN 33 pg (25-34); MEAN CORPUSCULAR HGB CONC 36 g/dL (32-36); MEAN CORPUSCULAR VOLUME 91 fL (80-99); MEAN PLATELET VOLUME 9.2 fL (9.0-12.2); MONOCYTES # (AUTO) 0.9 10^3/uL (0.0-1.0); MONOCYTES % (AUTO) 5 % (0-12); NEUTROPHILS % (AUTO) 86 % (42-75); PLATELET COUNT 540 10^3/uL (130-400); WHITE BLOOD COUNT 17.6 10^3/uL (4.3-11.0)
[2023-03-01 17:34] LABS: ALBUMIN 3.7 GM/DL (3.2-4.5)
[2023-03-01 17:36] LABS: CALCIUM 10.3 MG/DL (8.5-10.1)
[2023-03-01 17:37] LABS: TOTAL PROTEIN 7.7 GM/DL (6.4-8.2)
[2023-03-01 17:39] LABS: BILIRUBIN,TOTAL 0.4 MG/DL (0.1-1.0)
[2023-03-01 17:41] LABS: CREATININE SERUM 0.91 MG/DL (0.60-1.30)
[2023-03-01 17:43] LABS: MAGNESIUM 2.3 MG/DL (1.6-2.4)
[2023-03-01] MEDS ORDERED: KETOROLAC 30 MG/ML VIAL IVP STA (17:51)
[2023-03-01 17:53] LABS: POTASSIUM 1.8 MMOL/L (3.6-5.0)
[2023-03-01 17:56] LABS: CLARITY,URINE CLEAR; COLOR,URINE YELLOW; GLUCOSE, URINE (UA) NEGATIVE (NEGATIVE); KETONES,URINE TRACE (NEGATIVE); NITRITE,URINE NEGATIVE (NEGATIVE); PH,URINE 6.5 (5-9); PROTEIN,URINE 2+ (NEGATIVE)
[2023-03-01 17:57] LABS: BACTERIA,URINE NEGATIVE /HPF; BILIRUBIN,URINE NEGATIVE (NEGATIVE); LEUKOCYTE ESTERASE ,URINE NEGATIVE (NEGATIVE); WBC,URINE 0-2 /HPF
[2023-03-01] MEDS ORDERED: CEFEPIME INJECTION 1,000 MG in NS (IVPB) 50 ML 50 ML IV ONE (18:00)
[2023-03-01] MEDS ORDERED: ONDANSETRON 4 MG/2 ML (SDV) Z0FRAN IVP ONE (18:00)
[2023-03-01 18:02] LABS: BAND NEUTROPHILS 0 %; BASOPHILS % (MANUAL) 0 %; EOSINOPHILS % (MANUAL) 2 %; LYMPHOCYTES % (MANUAL) 8 %; MONOCYTES % (MANUAL) 8 %; NEUTROPHILS % (MANUAL) 82 %; RBC MORPH NORMAL
[2023-03-01] MEDS: D5 1/2NS + KCL 40 MEQ/L 1000ML 1,000 ML IV SCH ×2 (18:27→22:21)
[2023-03-01 18:31] LABS: AMPHETAMINE SCREEN, URINE NEGATIVE (NEGATIVE); BARBITURATE SCREEN URINE NEGATIVE (NEGATIVE); BENZODIAZEPINES SCREEN URINE NEGATIVE (NEGATIVE); CANNABINOID SCREEN, URINE NEGATIVE (NEGATIVE); COCAINE SCREEN URINE NEGATIVE (NEGATIVE); METHADONE STAT NEGATIVE (NEGATIVE); OPIATE SCREEN URINE NEGATIVE (NEGATIVE); OXYCODONE STAT NEGATIVE (NEGATIVE); PROPOXYPHENE STAT NEGATIVE (NEGATIVE); TRICYCLIC ANTIDEPRESSANTS SCRE NEGATIVE (NEGATIVE)
--- NOTE | 2023-03-01 18:37 | Diagnostic Imaging Report ---
EXAMINATION: Abdomen 1 view. HISTORY: Abdomen pain. COMPARISON: 12/26/2021. FINDINGS: There is a moderate amount of gas and stool throughout the colon. Nonobstructive bowel gas pattern. No radiopaque foreign body. Right upper quadrant cholecystectomy clips are present. The osseous structures are intact. IMPRESSION: Moderate stool burden without other acute abnormality in the abdomen. Dictated by: Dictated on workstation # [id number]
--- NOTE | 2023-03-01 18:41 | Diagnostic Imaging Report ---
EXAMINATION: CT abdomen and pelvis without contrast. TECHNIQUE: Multiple contiguous axial images were obtained through the abdomen and pelvis without the use of intravenous contrast. All CT scans use one or more of the following dose optimizing techniques: automated exposure control, MA and/or KvP adjustment based on patient size and exam type or iterative reconstruction. HISTORY: Flank pain, kidney stone suspected COMPARISON: 02/25/2023. FINDINGS: Lung bases: The lung bases are clear. Solid organs: The liver is normal. The gallbladder is surgically absent. There is no biliary ductal dilation. There is mild peripancreatic inflammatory stranding. Spleen is normal. Adrenal glands are normal. There are bilateral nonobstructing renal calculi measuring up to 0.8 cm. No hydronephrosis. There is a 0.5 cm stone within the mid left ureter. Bowel: The stomach and small bowel are normal without obstruction. The colon is unremarkable. The appendix is normal. Peritoneum: There is no intraperitoneal free fluid or free air. No suspicious lymphadenopathy. Vasculature: Normal without aneurysm. Musculoskeletal: No suspicious osseous lesion or compression fracture. Pelvis: The uterus is surgically absent. No adnexal mass. The urinary bladder is normal. IMPRESSION: 1. A 0.5 cm stone within the mid left ureter without significant hydronephrosis. 2. Additional bilateral nonobstructing renal calculi measuring up to 0.8 cm. 3. Mild peripancreatic inflammatory stranding. No peripancreatic fluid collection. These findings could be seen with acute pancreatitis in the appropriate clinical setting. Dictated by: Dictated on workstation # [id number]
[2023-03-01] MEDS ORDERED: morphine INJ 4 MG/ML 1 ML (VIAL/SYRINGE) IVP ONE ×2 (19:15→22:15)
[2023-03-01] MEDS ORDERED: TAMSULOSIN 0.4 MG (FLOMAX) CAP PO SCH (19:15)
[2023-03-01] MEDS ORDERED: hydrALAZINE INJECTION 20 MG/ML VIAL IV ONE (19:45)
[2023-03-01 21:12] LABS: CREATININE SERUM 0.83 MG/DL (0.60-1.30)
[2023-03-01 21:22] LABS: POTASSIUM 1.9 MMOL/L (3.6-5.0)
[2023-03-01] MEDS ORDERED: 1/2 NS IV SOLUTION 1000 ML 1,000 ML IV SCH (21:30)
[2023-03-01] MEDS: POTASSIUM CL 10MEQ/50ML IVPB 50 ML IV SCH ×3 (21:53→23:48)
[2023-03-02] MEDS: POTASSIUM CL 10MEQ/50ML IVPB 50 ML IV SCH ×3 (00:44→02:42)
[2023-03-02] MEDS: CEFEPIME INJECTION 1,000 MG in NS (IVPB) 50 ML 50 ML IV SCH ×2 (00:45→07:28)
[2023-03-02] MEDS ORDERED: morphine INJ 4 MG/ML 1 ML (VIAL/SYRINGE) IVP ONE ×5 (01:15→13:15)
[2023-03-02] MEDS ORDERED: KETOROLAC 30 MG/ML VIAL IVP ONE (04:00)
[2023-03-02] MEDS: D5 1/2NS + KCL 40 MEQ/L 1000ML 1,000 ML IV SCH ×2 (04:39→06:56)
[2023-03-02 04:49] LABS: BASOPHILS # (AUTO) 0.1 10^3/uL (0.0-0.1); BASOPHILS % (AUTO) 1 % (0-10); EOSINOPHILS # (AUTO) 0.2 10^3/uL (0.0-0.3); EOSINOPHILS % (AUTO) 2 % (0-10); HEMATOCRIT 36 % (35-52); HEMOGLOBIN 12.9 g/dL (11.5-16.0); LYMPHOCYTES # (AUTO) 1.6 10^3/uL (1.0-4.0); LYMPHOCYTES % (AUTO) 13 % (12-44); MEAN CORPUSCULAR HEMOGLOBIN 33 pg (25-34); MEAN CORPUSCULAR HGB CONC 36 g/dL (32-36); MEAN CORPUSCULAR VOLUME 91 fL (80-99); MEAN PLATELET VOLUME 9.2 fL (9.0-12.2); MONOCYTES % (AUTO) 8 % (0-12); NEUTROPHILS # (AUTO) 9.1 10^3/uL (1.8-7.8); NEUTROPHILS % (AUTO) 76 % (42-75); PLATELET COUNT 421 10^3/uL (130-400); WHITE BLOOD COUNT 12.1 10^3/uL (4.3-11.0)
[2023-03-02 04:58] LABS: ALBUMIN 2.9 GM/DL (3.2-4.5)
[2023-03-02 04:59] LABS: CALCIUM 8.8 MG/DL (8.5-10.1)
[2023-03-02 05:00] LABS: TOTAL PROTEIN 5.8 GM/DL (6.4-8.2)
[2023-03-02 05:02] LABS: BILIRUBIN,TOTAL 0.3 MG/DL (0.1-1.0)
[2023-03-02 05:04] LABS: CREATININE SERUM 0.72 MG/DL (0.60-1.30)
[2023-03-02 05:20] LABS: POTASSIUM 2.2 MMOL/L (3.6-5.0)
[2023-03-02] MEDS ORDERED: KCL 10 MEQ TAB (MICRO K) PO ONE (12:15)
[2023-03-02 13:19] VITALS: BP 172/103
== END 2023-03-02 13:17 | disposition short-term general hospital (02) ==
LOC: EDUNIT# 16:55 → ER 16:57
DX: N20.2 Calculus of kidney with calculus of ureter (principal); E87.6 Hypokalemia; D72.829 Elevated white blood cell count, unspecified; Z87.448 Personal history of other diseases of urinary system; Z90.49 Acquired absence of other specified parts of digestive tract
CPT/HCPCS: 36415; 74018; 74176; 80048; 80053; 80306; 81000; 82150; 83605; 83690; 83735; 84132; 85007; 85025; 85027; 87040; 87088

== ENCOUNTER 2023-05-01 12:25 | Inpatient (IN) | payer BC ==
[~2023-05-01] VITALS: Ht 162.5 cm; Wt 64.6 kg
[~2023-05-01 12:25] MED LIST changes: -CELE-63 PO; +CELE-91 PO
[2023-05-01] MEDS ORDERED: NALOXONE 0.4 MG/ML 1 ML VIAL IV PRN (13:00)
[2023-05-01 15:44] VITALS: BP 142/83
[2023-05-01 16:10] LABS: BILIRUBIN,URINE NEGATIVE (NEGATIVE); CLARITY,URINE CLEAR; COLOR,URINE YELLOW; GLUCOSE, URINE (UA) NEGATIVE (NEGATIVE); KETONES,URINE NEGATIVE (NEGATIVE); LEUKOCYTE ESTERASE ,URINE NEGATIVE (NEGATIVE); NITRITE,URINE NEGATIVE (NEGATIVE); PH,URINE 6.5 (5-9); PROTEIN,URINE 1+ (NEGATIVE)
[2023-05-01 16:11] LABS: AMORPHOUS SEDIMENT,UR FEW AMOR URATES /LPF; BACTERIA,URINE NEGATIVE /HPF; CALCIUM OXALATE CRYSTALS,UR MODERATE /LPF
[2023-05-01] MEDS: POTASSIUM CL 10MEQ/50ML IVPB 50 ML IV SCH ×4 (17:37→23:19)
[2023-05-01 17:39] LABS: BASOPHILS # (AUTO) 0.1 10^3/uL (0.0-0.1); BASOPHILS % (AUTO) 1 % (0-10); EOSINOPHILS # (AUTO) 0.1 10^3/uL (0.0-0.3); EOSINOPHILS % (AUTO) 1 % (0-10); HEMATOCRIT 41 % (35-52); HEMOGLOBIN 14.4 g/dL (11.5-16.0); LYMPHOCYTES % (AUTO) 24 % (12-44); MEAN CORPUSCULAR HEMOGLOBIN 33 pg (25-34); MEAN CORPUSCULAR HGB CONC 35 g/dL (32-36); MEAN CORPUSCULAR VOLUME 93 fL (80-99); MEAN PLATELET VOLUME 9.4 fL (9.0-12.2); MONOCYTES # (AUTO) 0.6 10^3/uL (0.0-1.0); MONOCYTES % (AUTO) 7 % (0-12); NEUTROPHILS # (AUTO) 5.7 10^3/uL (1.8-7.8); NEUTROPHILS % (AUTO) 68 % (42-75); PLATELET COUNT 373 10^3/uL (130-400); WHITE BLOOD COUNT 8.4 10^3/uL (4.3-11.0)
[2023-05-01 17:52] LABS: ALBUMIN 3.6 GM/DL (3.2-4.5)
[2023-05-01 17:53] LABS: CALCIUM 9.7 MG/DL (8.5-10.1)
[2023-05-01 17:54] LABS: TOTAL PROTEIN 6.6 GM/DL (6.4-8.2)
[2023-05-01 17:56] LABS: BILIRUBIN,TOTAL 0.3 MG/DL (0.1-1.0)
[2023-05-01 17:58] LABS: CREATININE SERUM 0.82 MG/DL (0.60-1.30)
[2023-05-01 18:00] LABS: MAGNESIUM 2.1 MG/DL (1.6-2.4)
[2023-05-01 18:01] LABS: POTASSIUM 2.5 MMOL/L (3.6-5.0)
[2023-05-01] MEDS: oxyCODONE IMMEDIATE RELEASE 5 MG TABLET PO PRN (18:10)
[2023-05-01] MEDS ORDERED: NS IV 500 ML 500 ML IV PRN (18:15)
[2023-05-01 20:00] VITALS: BP 165/84
[2023-05-01] MEDS ORDERED: NON-FORMULARY MEDICATION 1 EA EA PO SCH (21:00)
[2023-05-01] MEDS ORDERED: SPIRONOLACTONE 100 MG TABLET PO SCH (21:00)
[2023-05-01] MEDS: URSODIOL 300 MG CAPSULE PO SCH (21:23)
[2023-05-01] MEDS: ZOLPIDEM 5 MG (AMBIEN) TAB PO PRN (21:31)
[2023-05-02] VITALS (7 sets, daily range): BP systolic 121–151; BP diastolic 60–88
[2023-05-02] MEDS: oxyCODONE IMMEDIATE RELEASE 5 MG TABLET PO PRN ×4 (05:20→22:16)
[2023-05-02 05:51] LABS: POTASSIUM 2.6 MMOL/L (3.6-5.0)
[2023-05-02 05:53] LABS: CALCIUM 8.8 MG/DL (8.5-10.1)
[2023-05-02 05:54] LABS: TOTAL PROTEIN 5.4 GM/DL (6.4-8.2)
[2023-05-02 05:55] LABS: BILIRUBIN,TOTAL 0.3 MG/DL (0.1-1.0)
[2023-05-02 05:57] LABS: CREATININE SERUM 0.77 MG/DL (0.60-1.30)
[2023-05-02] MEDS: POTASSIUM CL 10MEQ/50ML IVPB 50 ML IV SCH ×7 (06:02→15:53)
[2023-05-02] MEDS: POTASSIUM CHLORIDE 20 MEQ TABLET PO SCH ×2 (06:02→07:55)
[2023-05-02] MEDS: MAGNESIUM 1 GM/100 ML IVPB 100 ML IV SCH (06:03)
[2023-05-02] MEDS: ENALAPRIL 10 MG TABLET PO SCH (07:54)
[2023-05-02] MEDS: URSODIOL 300 MG CAPSULE PO SCH ×2 (07:55→19:33)
[2023-05-02] MEDS: SPIRONOLACTONE 100 MG TABLET PO SCH ×2 (08:08→19:32)
[2023-05-02] MEDS ORDERED: AMIL5TAB3 PO (09:46)
--- NOTE | 2023-05-02 11:01 | History & Physical-Hospitalist ---
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 She is not a diabetic however has not had any history of kidney injury with a history of being refractory to high-dose spironolactone 100 mg twice daily lisinopril and oral potassium replacement. This raises the possibility of Kim's syndrome. Renin aldosterone ratio has not been elevated or suggestive of underlying mineralocorticoid excess. She started having palpitations fatigue loss of appetite her usual symptoms of hypokalemia despite reported compliance with her medical regiment. She had some nausea and vomited once and was noted to have potassium of 2.4 considering that she was symptomatic she is being admitted for IV potassium replacement she denies chest pain or shortness of breath has had no syncope or presyncope reported. Date Seen 05/02/23 Time Seen by a Provider: 09:00 Attending Physician Shala Carrera MD PCP Admitting Physician: Shala Carrera MD Attending Physician: Shala Carrera MD Referring Physician Date of Admission May 01, 2023 at 14:55 Home Medications & Allergies Home Medications Reviewed patient Home Medication Reconciliation performed by pharmacy medication reconciliations poultry service technician and/or nursing. Patients Allergies have been reviewed. Allergies Allergies Coded Allergies Sulfa (Sulfonamide Antibiotics) (Unverified Allergy, Severe, VOMITING, 07/27 02/07) Uncoded Allergies TB SERUM ( Allergy, Unknown, REDNESS, 08/12/14) Past [id number] Hx Patient Social History Tobacco Use?: Yes Tobacco type used: Cigarettes Smoking Status: Current Everyday Smoker Substance use?: No Alcohol Use?: No Pt feels they are or have been: No Immunizations Up To Date Tetanus Booster (TDap): Less Than 5 Years Hepatitis A: Yes Hepatitis B: Yes Seasonal Allergies Seasonal Allergies: No Current Status status: No status: No Advance Directives: No Communicates: Verbally Primary Language: Pashto Preferred Spoken Language: Pashto Is interpretation needed?: No Sensory deficits: Vision impairment Implanted or Applied Medical D: None Past Medical History Surgeries: Gallbladder, Hysterectomy Currently Using CPAP: No Currently Using BIPAP: No Cardiomyopathy, High Cholesterol, Hypertension 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 Kidney Stones Depression Blood Disorders: No Family Medical History Cardiovascular disease 19 FATHER 19 MOTHER Diabetes mellitus 19 FATHER Hypercholesterolemia 19 FATHER Hypertension 19 FATHER G8 BROTHER Kidney disease 19 FATHER Myocardial infarction 19 FATHER Thyroid disease 19 MOTHER No Family History of: AIDS Abdominal aortic aneurysm Alcoholism Alzheimer's disease Arthritis Asthma Completed stroke Dementia Drug abuse Glaucoma Parkinson's disease Prostate cancer Psychosocial problem Respiratory disorder Seizure disorder Severe allergy Tuberculosis Review of Systems Constitutional: see HPI Physical Exam Physical Exam Vital Signs Vital Signs - First Documented 05/01/23 05/01/23 15:30 15:44 Temp 36.6 Pulse 88 Resp 16 B/P (MAP) 142/83 (102) Pulse Ox 100 O2 Delivery Room Air Capillary Refill : Height, Weight, BMI Height: 5'4.00" Weight: 188lbs. oz. 85.462628cl; 24.46 BMI Method:Stated General Appearance: Other (He did not appearance) Respiratory: Chest Non Tender, Lungs Clear, Normal Breath Sounds, No Accessory Muscle Use, No Respiratory Distress Cardiovascular: Regular Rate, Rhythm, No Edema, No Gallop, No JVD, No Murmur, Normal Peripheral Pulses Gastrointestinal: No Organomegaly, No Pulsatile Mass, Non Tender, Soft, Other ( sounds present but hypoactive no evidence for distention) Extremity: Normal Capillary Refill, Normal Inspection, Normal Range of Motion, Non Tender, No Calf Tenderness, No Pedal Edema Results Results/Procedures Labs Laboratory Tests 05/01/23 17:25 05/02/23 05:06 Patient resulted labs reviewed. Assessment/Plan Admission Diagnosis Refractory hypokalemia with metabolic alkalosis secondary to either type IV RTA or Kim's syndrome. The patient is being admitted for IV potassium replacement will increase spironolactone to 200 mg twice daily. Unfortunately [facility] do not have amiloride on pharmacy but will give this a try starting at 10 mg upon her discharge will be giving oral replacement in addition to her IV monitoring potassium. Overnight her potassium was only up 1/10 of a point from 2.5-2.6 will repeat in the morning. Admission Status: Inpatient Order (span 2 midnights) Reason for Inpatient Admission: see HPI SHALA CARRERA MD May 02, 2023 11:01
[2023-05-02] MEDS: POTASSIUM BICARB 20 MEQ effervescent TABLET PO SCH ×2 (12:15→19:31)
[2023-05-02] MEDS: ZOLPIDEM 5 MG (AMBIEN) TAB PO PRN (19:31)
[2023-05-03] MEDS: oxyCODONE IMMEDIATE RELEASE 5 MG TABLET PO PRN ×2 (02:01→06:29)
[2023-05-03 03:01] VITALS: BP 123/76
[2023-05-03 06:05] LABS: POTASSIUM 3.5 MMOL/L (3.6-5.0)
[2023-05-03] MEDS: POTASSIUM CL 10MEQ/50ML IVPB 50 ML IV SCH (06:07)
[2023-05-03 06:12] LABS: MAGNESIUM 2.1 MG/DL (1.6-2.4)
[2023-05-03] MEDS: MAGNESIUM 1 GM/100 ML IVPB 100 ML IV SCH (06:29)
[2023-05-03 07:42] VITALS: BP 132/87
[2023-05-03] MEDS: URSODIOL 300 MG CAPSULE PO SCH (08:33)
[2023-05-03] MEDS: POTASSIUM BICARB 20 MEQ effervescent TABLET PO SCH (08:34)
[2023-05-03] MEDS: ENALAPRIL 10 MG TABLET PO SCH (08:34)
[2023-05-03] MEDS: SPIRONOLACTONE 100 MG TABLET PO SCH (08:34)
[2023-05-03] MEDS ORDERED: POTASSIUM CHLORIDE 20 MEQ TABLET PO ONE (09:00)
--- NOTE | 2023-05-03 10:29 | Discharge Summary ---
Diagnosis/Chief Complaint Date of Admission May 01, 2023 at 14:55 Date of Discharge Discharge Date: May 03, 2023 Admission Diagnosis Refractory hypokalemia with metabolic alkalosis secondary to either type IV RTA or Kim's syndrome. The patient is being admitted for IV potassium repla cement will increase spironolactone to 200 mg twice daily. Unfortunately we do not have amiloride on pharmacy but will give this a try starting at 10 mg upon her discharge will be giving oral replacement in addition to her IV monitoring potassium. Overnight her potassium was only up 1/10 of a point from 2.5-2.6 will repeat in the morning. Primary Care Shala Carrera MD Discharge Summary Discharge Physical Exam Allergies: Coded Allergies: Sulfa (Sulfonamide Antibiotics) (Unverified Allergy, Severe, VOMITING, 08/12/14) Uncoded Allergies: TB SERUM (Allergy, Unknown, REDNESS, 08/12/14) Vitals & I&Os Vital Signs Date Time Temp Pulse Resp B/P (MAP) Pulse Ox O2 Delivery O2 Flow Rate FiO2 05/03/23 08:00 Room Air 05/03/23 07:42 36.6 77 18 132/87 (102) 97 General Appearance: No Apparent Distress Respiratory: Chest Non Tender, Lungs Clear, Normal Breath Sounds, No Accessory Muscle Use, No Respiratory Distress Cardiovascular: Regular Rate, Rhythm, No Edema, No Gallop, No JVD, No Murmur, Normal Peripheral Pulses Gastrointestinal: Normal Bowel Sounds, No Organomegaly, No Pulsatile Mass, Non Tender, Soft Neurologic/Psychiatric: Alert, Oriented x3 Hospital Course Was the Problem List Reviewed?: Yes Patient is a 43-year-old white female with 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 She is not a diabetic however has not had any history of kidney injury with a history of being refractory to high-dose spironolactone 100 mg twice daily lisinopril and oral potassium replacement. This raises the possibility of Kim's syndrome. Renin aldosterone ratio has not been elevated or suggestive of underlying mineralocorticoid excess. She started having palpitations fatigue loss of appetite her usual symptoms of hypokalemia despite reported compliance with her medical regiment. She had some nausea and vomited once and was noted to have potassium of 2.4 considering that she was symptomatic she is being admitted for IV potassium replacement she denies chest pain or shortness of breath has had no syncope or presyncope reported.On admission the patient received 40 mg of potassium IV twice daily and 10 mill equivalent increments over an hour oral replacement therapy was continued as well. Spironolactone was increased to 200 mg twice daily and there have been some case reports of people responding better to Amiloride. This is not available per hospital formulary but it did call at 10 mg which the patient will be initiating in addition to 100 mg of spironolactone twice daily. Her potassium on day of discharge was up to 3.6 and she will continue 40 mill equivalents of potassium p.o. 3 times daily. No other changes in home medication. We will obtain a repeat BMP level on Thursday and she will follow-up with [facility] in 1 week and will repeat BMP again on that follow- up visit as well with likely goal of increasing amiloride to max dose. We did discuss the small possibility of hyperkalemia and if she is feeling unwell after hours she is to go to the emergency room. Labs (last 24 hrs) Laboratory Tests 05/02/23 14:05: Potassium Level 3.4L 05/03/23 05:30: Potassium Level 3.5L, Magnesium Level 2.1 Patient resulted labs reviewed. Pending Labs Laboratory Tests 05/03/23 05:30: Potassium Level 3.5, Magnesium Level 2.1 Discussion & Recommendations Discharge Planning: >30 minutes discharge planning Discharge Home Medications: Active Scripts Active Amiloride HCl 5 Mg Tablet 10 Mg PO DAILY 30 Days Reported Magnesium (Magnesium Citrate and Oxide) 250 Mg Capsule 250 Mg PO BID Cyclobenzaprine HCl 10 Mg Tablet 10-20 Mg PO BID PRN Oxycodone-Acetaminophen 10-325 (Oxycodone HCl/Acetaminophen) 10 Mg-325 Mg Tablet 1-2 Ea PO Q6H PRN Potassium Chloride 20 Meq Tablet.er 40 Meq PO TID TAKES 2 (20MEQ) TABS Spironolactone 100 Mg Tablet 100 Mg PO BID Celecoxib 200 Mg Capsule 200 Mg PO HS Zolpidem Tartrate 5 Mg Tablet 10 Mg PO HS TAKES 2 (5MG) TABS Prazosin HCl 1 Mg Capsule 3 Mg PO HS TAKES 3 (1MG) CAPS Enalapril Maleate 20 Mg Tablet 40 Mg PO DAILY TAKES 2 (20MG) TABS LAST FILLED 10-03-2022 #60/30 DAY SUPPLY Instructions to patient/family Please see electronic discharge instructions given to patient. Copy Copies To 1: SHALA CARRERA MD, MARK D MD May 03, 2023 10:29
== END 2023-05-03 10:42 | disposition home or self-care (01) | DRG 641 ==
LOC: 4TH 14:55
PROVIDERS: ADMIT Internal Medicine; ATTEND Internal Medicine
DX: E87.6 Hypokalemia (principal); I42.9 Cardiomyopathy, unspecified; N25.89 Other disorders resulting from impaired renal tubular function; F17.210 Nicotine dependence, cigarettes, uncomplicated; E78.00 Pure hypercholesterolemia, unspecified; I10 Essential (primary) hypertension; F32.A Depression, unspecified; E87.3 Alkalosis
CPT/HCPCS: 36415; 80053; 81000; 83735; 84132; 85025

== ENCOUNTER 2023-05-06 16:48 | Outpatient (RCR) | payer BC ==
[~2023-05-06 16:48] MED LIST changes: +AMIL5TAB3 PO
== END 2023-05-26 | disposition home or self-care (01) ==
LOC: LAB 16:48
PROVIDERS: ATTEND Nurse Practitioner Family
DX: E87.6 Hypokalemia (principal); N25.89 Other disorders resulting from impaired renal tubular function
CPT/HCPCS: 36415; 84132